=== PATIENT | male | born 1940 | race Caucasian/White ===

== ENCOUNTER 2020-09-10 11:58 | Emergency (ER) | payer MEDICARE, OTHER ==
--- NOTE | 2020-09-10 13:01 | CT Report ---
PROCEDURE: HEAD WO INDICATIONS: fall, head injury, nausea and vomiting TECHNIQUE: Noncontrast 4.5 mm thick angled axial sections acquired from the foramen magnum to the vertex. For r adiation dose reduction, the following was used: automated exposure control, adjustment of mA and/or kV according to patient size. COMPARISON: None. FINDINGS: Image quality: Excellent. CSF spaces: Basal cisterns are patent. No extra-axial fluid collections. Ventricles are normal in size and shape. Brain: No midline shift. No intracranial masses or hemorrhage. Butcher-white matter interface is norm al. Age-appropriate brain parenchymal volume loss and chronic small vessel ischemic change can be se en. There is a focal remote infarct seen involving the right basal ganglia. Skull and face: Mild left forehead soft tissue swelling is seen, with a mild scalp hematoma. There i s a subcutaneous foreign body seen, as on series 7 image 13 and on series 3 image 13. No underlying f racture can be seen. Calvarium and visualized facial bones are intact, without suspicious lesions. Sinuses: Visualized sinuses and mastoids are clear. IMPRESSION: No intracranial hemorrhage is seen. No significant intracranial abnormality is seen. Mild left forehead hematoma, with associated subcutaneous foreign body. No fracture can be seen. Remote right basal ganglia infarct. Reviewed by: Zechariah Shaikh MD on 09/10/2020 12:00 PM [facility] Approved by: Zechariah Shaikh MD on 09/10/2020 12:00 PM [facility] Station ID: [id number]
[2020-09-10] MEDS ORDERED: ONDANSETRON 4 MG/2 ML VIAL IVP STA (13:35)
--- NOTE | 2020-09-10 13:39 | ED Physician Documentation ---
History of Present Illness - Stated complaint Stated Complaint: FALL - Chief complaint Chief Complaint: Trauma Hd/Nk - History obtained from History obtained from: Patient, Family - Additonal information Additional information: Patient comes emergency department chief complaint of head injury 2 days ago. Patient states he was walking up the steps and got distracted and tripped over the steps, falling forward and striking his head on the stair. Patient states that As the day wore on, he began to develop a sense of nausea and headache. Patient states the feeling persisted yesterday and that he finally decided to come to the emergency department today. No other injuries whatsoever during the fall. No visual changes. Patient denies any other complaints at this time. He was feeling well prior to the fall. Review of Systems Ten Systems: 10 systems reviewed and negative Constitutional: reports: Reviewed and negative Eyes: reports: Reviewed and negative Ears: reports: Reviewed and negative Nose: reports: Reviewed and negative Throat: reports: Reviewed and negative Cardiac: reports: Reviewed and negative Respiratory: reports: Reviewed and negative GI: reports: Nausea, Vomiting : reports: Reviewed and negative Skin: reports: Reviewed and negative Musculoskeletal: reports: Reviewed and negative Neurologic: reports: Headache Psychiatric: reports: Reviewed and negative Endocrine: reports: Reviewed and negative Immunocompromised: reports: Reviewed and negative PD PAST MEDICAL HISTORY - Past Medical History Past Medical History: Yes Cardiovascular: Congestive heart failure, [place] Respiratory: Sleep apnea, CPAP use Neuro: CVA Endocrine/Autoimmune: Type 2 diabetes GI: Other : Frequency HEENT: None Psych: Panic attacks Musculoskeletal: Osteoarthritis - Past Surgical History Past Surgical History: Yes General: Appendectomy Ortho: Knee replacement Cardiovascular: Coronary stent, Vascular surgery, Other - Present Medications Home Medications: Ambulatory Orders Medication Instructions Recorded Confirmed Ondansetron Odt [Zofran] 4 mg TL Q6H PRN #10 tablet 09/10/20 - Allergies Allergies/Adverse Reactions: Allergies Allergy/AdvReac Type Severity Reaction Status Date / Time codeine Allergy Hallucinati Verified 09/10/20 12:05 ons - Social History Does the pt smoke?: No Smoking Status: Never smoker Does the pt drink ETOH?: No Does the pt have substance abuse?: No - Immunizations Immunizations are current?: Yes PD ED PE NORMAL - Vitals Vital signs reviewed: Yes - General General: Alert and oriented X 3, No acute distress, Well developed/nourished - HEENT HEENT: PERRL, EOMI, Moist mucous membranes, Other (Contusion, central forehead superiorly.) - Neck Neck: Supple, no meningeal sign - Cardiac Cardiac: RRR, No murmur - Respiratory Respiratory: No respiratory distress, Clear bilaterally - Abdomen Abdomen: Soft, Non tender, Non distended - Back Back: No spinal TTP - Derm Derm: Normal color, Warm and dry, No rash - Extremities Extremities: No deformity, No edema - Neuro Neuro: Alert and oriented X 3, holistic pulser 2-12 intact, No motor deficit, No sensory deficit, Normal speech - Psych Psych: Normal mood, Normal affect Results - Vitals Vitals: Vital Signs - 24 hr 09/10/20 09/10/20 09/10/20 12:07 13:57 15:17 Temperature 36.8 C 36.6 C Heart Rate 58 L 57 L 59 L Respiratory 20 11 L 17 Rate Blood Pressure 146/53 H 146/75 H 126/66 O2 Saturation 98 95 95 Oxygen O2 Source Room air - Rads (name of study) CT head Radiology: Final report received, EMP read indepedently, See rad report (nad) PD MEDICAL DECISION MAKING - ED course Complexity details: reviewed results, re-evaluated patient, considered differential, d/w patient, d/w family ED course: The patient overall was fairly well-appearing, and CT scan of the head was unremarkable. He was treated symptomatically in the emergency department with IV fluids and Zofran, after which he was found to be feeling better. I felt the patient was stable for discharge home. We have discussed home management of symptoms and the usual indications for return. Departure - Departure Disposition: 01 Home, Self Care Clinical Impression: Concussion Qualifiers: Encounter type: initial encounter Loss of consciousness presence/duration: without LOC Qualified Code(s): S06.0X0A - Concussion without loss of consciousness, initial encounter Vomiting Qualifiers: Vomiting type: bilious vomiting Nausea presence: with nausea Qualified Code(s): R11.14 - Bilious vomiting Condition: Stable Instructions: ED Head Injury Closed, ED Nausea Vomiting Prescriptions: Ondansetron Odt [Zofran] 4 mg TL Q6H PRN #10 tablet PRN Reason: Nausea / Vomiting Comments: Your CT scan looks good. There is no evidence of bleeding in the brain or any other concerning findings. You have been treated with Zofran for your nausea today, and will be given the same to take at home. Please drink plenty of fluids and get rest when you need it. You may eat food as tolerated, though if you feel excessively nauseated when you eat, just stick to liquids until your stomach is feeling better. Likely, you will have nausea for a few days and you might feel a little dizzy. Please follow-up with your primary care physician if needed. Discharge Date/Time: 09/10/20 15:38
[2020-09-10] MEDS ORDERED: SODIUM CHLORIDE 0.9% 1,000 ML IV STA (14:19)
[2020-09-10 15:19] VITALS: BP 126/66
== END 2020-09-10 15:38 | disposition home or self-care (01) ==
LOC: ED 11:58
DX: S06.0X0A Concussion without loss of consciousness, initial encounter (principal); S00.83XA Contusion of other part of head, initial encounter; W10.9XXA Fall (on) (from) unspecified stairs and steps, initial encounter; Y93.01 Activity, walking, marching and hiking; E11.9 Type 2 diabetes mellitus without complications
CPT/HCPCS: 96374; 99284

== ENCOUNTER 2020-10-29 17:18 | Outpatient (CLI) | payer MEDICARE | END 2020-10-29 17:19 | disposition home or self-care (01) | LOC: COV 17:18 | PROVIDERS: ATTEND Physician Assistant | DX: Z01.812 Encounter for preprocedural laboratory examination (principal); Z20.822 Contact with and (suspected) exposure to COVID-19 ==

== ENCOUNTER 2020-11-04 10:58 | Emergency (ER) | payer MEDICARE ==
[2020-11-04 11:49] LABS: BASOPHILS % (AUTO) 0.4 %; EOSINOPHILS # (AUTO) 0.1 10^3/uL (0.0-0.7); EOSINOPHILS % (AUTO) 1.6 %; HCT - HEMATOCRIT 38.3 % (42.0-52.0); HGB - HEMOGLOBIN 12.5 g/dL (14.0-18.0); LYMPHOCYTES # (AUTO) 1.1 10^3/uL (1.5-3.5); LYMPHOCYTES % (AUTO) 22.2 %; MEAN CORPUSCULAR HEMOGLOBIN 29.6 pg (27.0-31.0); MEAN CORPUSCULAR HGB CONC 32.6 g/dL (32.0-36.0); MEAN CORPUSCULAR VOLUME 90.8 fL (80.0-94.0); MONOCYTES # (AUTO) 0.3 10^3/uL (0.0-1.0); MONOCYTES % (AUTO) 5.9 %; NEUTROPHILS # (AUTO) 3.4 10^3/uL (1.5-6.6); NEUTROPHILS % (AUTO) 69.5 %; PLT - PLATELET COUNT 142 10^3/uL (130-450); RED BLOOD COUNT 4.22 10^6/uL (4.70-6.10); RED CELL DISTRIBUTION WIDTH 15.6 % (12.0-15.0); WHITE BLOOD COUNT 4.9 x10^3/uL (4.8-10.8)
[2020-11-04 12:03] LABS: ALBUMIN 4.6 g/dL (3.2-5.5); ALBUMIN/GLOBULIN RATIO 1.5 (1.0-2.2); BILIRUBIN,TOTAL 1.5 mg/dL (0.2-1.0); CALCIUM 9.5 mg/dL (8.5-10.3); CREATININE 1.1 mg/dL (0.6-1.2); POTASSIUM 3.6 mmol/L (3.5-5.0); TOTAL PROTEIN 7.6 g/dL (6.7-8.2)
[2020-11-04] MEDS ORDERED: HALOPERIDOL 5 MG/ML VIAL IVP ONE (12:33)
[2020-11-04] MEDS ORDERED: DEXAMETHASONE 10 MG/ML VIAL IVP STA (12:33)
[2020-11-04] MEDS ORDERED: SODIUM CHLORIDE 0.9% 1,000 ML IV STA (12:33)
--- NOTE | 2020-11-04 12:36 | ED Physician Documentation ---
PD HPI NVD - Stated complaint Stated Complaint: N/V - Chief complaint Chief Complaint: Abd Pain - History obtained from History obtained from: Patient, Family - Additonal information Additional information: 80-year-old gentleman had colonoscopy and EGD 5 days ago. He is always had trouble with anesthetic before and has had a lot of problems with nausea. He has not been vomiting but has had persistent nausea since the procedures. States his bowel movements have been normal and he is in no pain. Feels very dizzy and weak and has had some near falls. Granddaughter confides in me that he has also been short of breath although the patient does not readily offer this. He has a history of coronary disease and carotid disease. Review of Systems Ten Systems: 10 systems reviewed and negative Constitutional: reports: Fatigue Respiratory: reports: Dyspnea GI: reports: Nausea. denies: Abdominal Pain, Vomiting, Constipation, Diarrhea, Hematemesis PD PAST MEDICAL HISTORY - Past Medical History Past Medical History: Yes Cardiovascular: Congestive heart failure, [place] Respiratory: Sleep apnea, CPAP use Neuro: CVA Endocrine/Autoimmune: Type 2 diabetes GI: None, Other : Frequency HEENT: None Psych: Panic attacks Musculoskeletal: Osteoarthritis Derm: None - Past Surgical History Past Surgical History: Yes General: Appendectomy Ortho: Knee replacement Cardiovascular: Coronary stent, Vascular surgery, Other - Present Medications Home Medications: Ambulatory Orders Medication Instructions Recorded Confirmed Ondansetron Odt [Zofran] 4 mg TL Q6H PRN #10 tablet 09/10/20 LORazepam [Ativan] 1 mg PO TID PRN #6 tablet 11/04/20 Metoclopramide [Reglan] 10 mg PO Q6H PRN #20 tablet 11/04/20 - Allergies Allergies/Adverse Reactions: Allergies Allergy/AdvReac Type Severity Reaction Status Date / Time codeine Allergy Hallucinati Verified 11/04/20 11:29 ons - Social History Does the pt smoke?: No Smoking Status: Never smoker Does the pt drink ETOH?: No Does the pt have substance abuse?: No - Immunizations Immunizations are current?: Yes PD ED PE NORMAL - Vitals Vital signs reviewed: Yes - General General: Alert and oriented X 3, Other (He appears uncomfortable and prefers to keep his eyes closed.) - HEENT HEENT: PERRL, EOMI - Neck Neck: Supple, no meningeal sign, No bony TTP - Cardiac Cardiac: RRR, No murmur - Respiratory Respiratory: No respiratory distress, Clear bilaterally - Abdomen Abdomen: Normal bowel sounds, Soft, Non tender - Back Back: No CVA TTP, No spinal TTP - Derm Derm: Normal color, Warm and dry - Extremities Extremities: No edema, No calf tenderness / cord - Neuro Neuro: Alert and oriented X 3, Normal speech Results - Vitals Vitals: Vital Signs - 24 hr 11/04/20 11/04/20 11/04/20 11:24 13:28 15:00 Temperature 36.9 C 36.8 C 36.6 C Heart Rate 69 75 65 Respiratory 24 16 18 Rate Blood Pressure 153/87 H 182/100 H 183/65 H O2 Saturation 100 95 93 11/04/20 16:27 Temperature 36.5 C Heart Rate 70 Respiratory 18 Rate Blood Pressure 201/85 H O2 Saturation 97 Oxygen O2 Source Room air - EKG (time done) 1309 Rate: Rate (enter#) (72) Rhythm: NSR [place]: Normal Intervals: Other (LAFB) QRS: Low voltage Ischemia: Non specific changes - Labs Labs: Laboratory Tests 11/04/20 11/04/20 11/04/20 11:43 11:43 11:43 WBC 4.9 RBC 4.22 L Hgb 12.5 L Hct 38.3 L MCV 90.8 MCH 29.6 MCHC 32.6 RDW 15.6 H Plt Count 142 MPV 9.0 Neut # (Auto) 3.4 Lymph # (Auto) 1.1 L [place] # (Auto) 0.3 Eos # (Auto) 0.1 Baso # (Auto) 0.0 Absolute Nucleated RBC 0.00 Nucleated RBC % 0.0 Sodium 140 Potassium 3.6 Chloride 100 L Carbon Dioxide 27 Anion Gap 13.0 BUN 19 Creatinine 1.1 Estimated GFR (MDRD) 65 L Glucose 157 H Calcium 9.5 Total Bilirubin 1.5 H AST 50 H ALT 42 Alkaline Phosphatase 66 Troponin I High Sens 19.2 Total Protein 7.6 Albumin 4.6 Globulin 3.0 Albumin/Globulin Ratio 1.5 Lipase 30 Urine Color Urine Clarity Urine pH Ur Specific Paron Urine Protein Urine Glucose (UA) Urine Ketones Urine Occult Blood Urine Nitrite Urine Bilirubin Urine Urobilinogen Ur Leukocyte Esterase Ur Microscopic Review Urine Culture Comments 11/04/20 12:23 WBC RBC Hgb Hct MCV MCH MCHC RDW Plt Count MPV Neut # (Auto) Lymph # (Auto) [place] # (Auto) Eos # (Auto) Baso # (Auto) Absolute Nucleated RBC Nucleated RBC % Sodium Potassium Chloride Carbon Dioxide Anion Gap BUN Creatinine Estimated GFR (MDRD) Glucose Calcium Total Bilirubin AST ALT Alkaline Phosphatase Troponin I High Sens Total Protein Albumin Globulin Albumin/Globulin Ratio Lipase Urine Color DARK YELLOW Urine Clarity CLEAR Urine pH 8.5 H Ur Specific Paron 1.020 Urine Protein NEGATIVE Urine Glucose (UA) NEGATIVE Urine Ketones NEGATIVE Urine Occult Blood NEGATIVE Urine Nitrite NEGATIVE Urine Bilirubin NEGATIVE Urine Urobilinogen 1 (NORMAL) Ur Leukocyte Esterase NEGATIVE Ur Microscopic Review NOT INDICATED Urine Culture Comments NOT INDICATED PD MEDICAL DECISION MAKING - ED course ED course: 80-year-old gentleman with persistent nausea after procedure. Also has vertigo. States that this is happened before with anesthetic but never before this lo ng. He was given some Zofran which was ineffective. No evidence of perforation or bowel obstruction on exam. We will give him some dexamethasone and haloperidol. Also probably deserving of a cardiac work-up given complaint of shortness of breath and nausea. Work-up was without significant abnormal etiologies or worrisome findings. After divided doses of medications he was feeling much better. Frankly Ativan seemed the most effective. Departure - Departure Disposition: 01 Home, Self Care Clinical Impression: Nausea Condition: Good Record reviewed to determine appropriate education?: Yes Instructions: ED Nausea Vomiting Prescriptions: LORazepam [Ativan] 1 mg PO TID PRN #6 tablet PRN Reason: Nausea / Vomiting Metoclopramide [Reglan] 10 mg PO Q6H PRN #20 tablet PRN Reason: nausea or headache Comments: Prescriptions were sent electronically to [facility] in [place]. Return for any worsening symptoms. Do not drink or drive with the lorazepam/Ativan as it may make you sleepy. Return for new or worsening symptoms or if not better in a day or 2. Discharge Date/Time: 11/04/20 16:28
[2020-11-04 12:47] LABS: BILIRUBIN,URINE NEGATIVE (NEGATIVE); GLUCOSE, URINE (UA) NEGATIVE (NEGATIVE); KETONES,URINE (UA) NEGATIVE (NEGATIVE); LEUKOCYTE ESTERASE, URINE NEGATIVE (NEGATIVE); NITRITE,URINE NEGATIVE (NEGATIVE); OCCULT BLOOD,URINE NEGATIVE (NEGATIVE); PH,URINE 8.5 PH (5.0-7.5); PROTEIN,URINE NEGATIVE (NEGATIVE); UROBILINOGEN,URINE 1 (NORMAL) E.U./dL (NORMAL)
[2020-11-04 13:01] LABS: CLARITY,URINE CLEAR (CLEAR)
[2020-11-04] MEDS ORDERED: LORazepam 2 MG/ML VIAL IVP STA ×2 (13:11→15:48)
[2020-11-04 16:28] VITALS: BP 201/85
== END 2020-11-04 16:28 | disposition home or self-care (01) ==
LOC: ED 10:58
DX: R11.0 Nausea (principal); E11.9 Type 2 diabetes mellitus without complications
CPT/HCPCS: 36415; 80053; 81003; 83690; 84484; 85025; 93005; 96361; 96374; 96375; 96376; 99283; 99284; J2060; 81001; 87086

== ENCOUNTER 2021-05-24 18:30 | Outpatient (CLI) | payer MEDICARE | END 2021-05-24 18:31 | disposition critical access hospital (66) | LOC: EMS 18:30 | DX: R53.1 Weakness (principal); R42 Dizziness and giddiness; R26.81 Unsteadiness on feet | CPT/HCPCS: A0425; A0429 ==

== ENCOUNTER 2021-05-24 18:50 | Inpatient (IN) | payer MEDICARE ==
[2021-05-24] MEDS ORDERED: SODIUM CHLORIDE 0.9% 1,000 ML IV STA (19:51)
--- NOTE | 2021-05-24 19:56 | ED Physician Documentation ---
PD HPI URI - Stated complaint Stated Complaint: WEAKNESS/DIZZINESS - Chief complaint Chief Complaint: Fever - History obtained from History obtained from: Patient, EMS - History of Present Illness Timing - onset: How many days ago (3) Timing duration: Days (3) Timing details: Gradual onset, Still present Associated symptoms: Fever, Nasal congestion, Dry cough, Other (collapse today) Contributing factors: Sick contact (daughter in the hospital with COVID) Improves by: O2 Worsened by: Activity Similar symptoms before: Has not had sx before Recently seen: Not recently seen - Additional information Additional information: previously well 81 y/o male with a history of CAD, diabetes and CVA has exposure to a daughter with COVID. She is currently in the hospital starting 4 days ago. The patient is vaccinated with 2 doses of covid vaccine. He has developed a cough 3 days ago and today has fever on arrival to the ED. He had a collapse at home this evening and was attended to by medics who transported the patient to the hospital. Review of Systems Constitutional: reports: Fever, Myalgias, Fatigue Eyes: denies: Decreased vision Ears: denies: Ear pain Nose: reports: Rhinorrhea / runny nose, Congestion Throat: denies: Sore throat Cardiac: denies: Chest pain / pressure, Palpitations Respiratory: reports: Cough. denies: Dyspnea GI: denies: Abdominal Pain, Nausea, Vomiting, Constipation, Diarrhea : reports: Incontinent (for the past 3 wks.). denies: Dysuria, Frequency PD PAST MEDICAL HISTORY - Past Medical History Cardiovascular: Congestive heart failure, [place] Respiratory: Sleep apnea, CPAP use Neuro: CVA Endocrine/Autoimmune: Type 2 diabetes GI: None, Other : Frequency HEENT: None Psych: Panic attacks Musculoskeletal: Osteoarthritis Derm: None - Past Surgical History Past Surgical History: Yes General: Appendectomy Ortho: Knee replacement Cardiovascular: Coronary stent, Vascular surgery, Other - Present Medications Home Medications: Ambulatory Orders Medication Instructions Recorded Confirmed Ondansetron Odt [Zofran] 4 mg TL Q6H PRN #10 tablet 09/10/20 LORazepam [Ativan] 1 mg PO TID PRN #6 tablet 11/04/20 Metoclopramide [Reglan] 10 mg PO Q6H PRN #20 tablet 11/04/20 - Allergies Allergies/Adverse Reactions: Allergies Allergy/AdvReac Type Severity Reaction Status Date / Time codeine Allergy Hallucinati Verified 11/04/20 11:29 ons - Social History Does the pt smoke?: No Smoking Status: Never smoker Does the pt drink ETOH?: No Does the pt have substance abuse?: No - Immunizations Immunizations are current?: Yes PD ED PE NORMAL - Vitals Vital signs reviewed: Yes (febrile and hypertensive ) - General General: Alert and oriented X 3, Well developed/nourished, Other (flush appearing ) - HEENT HEENT: Atraumatic, PERRL, EOMI, Other (mucous membranes are parched. ) - Neck Neck: Supple, no meningeal sign, No bony TTP - Cardiac Cardiac: RRR, No murmur - Respiratory Respiratory: No respiratory distress, Other (diminished breath sounds with crackles in the right base most decreased at left base. 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 2-12 intact, No motor deficit, No sensory deficit, Normal speech Eye Opening: Spontaneous Motor: Obeys Commands Verbal: Oriented GCS Score: 15 - Psych Psych: Normal mood, Normal affect Results - Vitals Vitals: Vital Signs - 24 hr 05/24/21 05/24/21 05/24/21 19:11 19:15 19:51 Temperature 100.9 C H Heart Rate 80 78 Respiratory 24 25 H 25 H Rate Blood Pressure 185/91 H O2 Saturation 98 98 96 05/24/21 05/24/21 20:36 20:49 Temperature Heart Rate 78 73 Respiratory 23 28 H Rate Blood Pressure 131/52 H 131/52 H O2 Saturation 97 96 Oxygen O2 Source Nasal cannula - Labs Labs: Laboratory Tests 05/24/21 05/24/21 05/24/21 20:00 20:00 20:00 WBC 7.3 RBC 3.72 L Hgb 10.8 L Hct 33.4 L MCV 89.8 MCH 29.0 MCHC 32.3 RDW 15.7 H Plt Count 119 L MPV 9.9 Neut # (Auto) 5.9 Lymph # (Auto) 0.6 L [place] # (Auto) 0.8 Eos # (Auto) 0.0 Baso # (Auto) 0.0 Absolute Nucleated RBC 0.00 Nucleated RBC % 0.0 Sodium 135 Potassium 3.7 Chloride 96 L Carbon Dioxide 27 Anion Gap 12.0 BUN 37 H Creatinine 1.6 H Estimated GFR (MDRD) 42 L Glucose 192 H Lactic Acid 1.9 Calcium 8.1 L Total Bilirubin 1.1 H AST 23 ALT 21 Alkaline Phosphatase 73 Total Protein 6.6 L Albumin 3.5 Globulin 3.1 Albumin/Globulin Ratio 1.1 Lipase 34 Nasal Adenovirus (PCR) Nasal B. parapertussis DNA (PCR) Nasal Coronavir 229E PCR Nasal Coronavir HKU1 PCR Nasal Coronavir NL63 PCR Nasal Coronavir OC43 PCR Nasal Enterovir/Rhinovir PCR Nasal Influenza B PCR Nasal Influenza A PCR Nasal Parainfluen 1 PCR Nasal Parainfluen 2 PCR Nasal Parainfluen 3 PCR Nasal Parainfluen 4 PCR Nasal RSV (PCR) Nasal B.pertussis DNA PCR Nasal C.pneumoniae (PCR) Erwin Human Metapneumo PCR Nasal M.pneumoniae (PCR) Nasal SARS-CoV-2 (PCR) 05/24/21 20:00 WBC RBC Hgb Hct MCV MCH MCHC RDW Plt Count MPV Neut # (Auto) Lymph # (Auto) [place] # (Auto) Eos # (Auto) Baso # (Auto) Absolute Nucleated RBC Nucleated RBC % Sodium Potassium Chloride Carbon Dioxide Anion Gap BUN Creatinine Estimated GFR (MDRD) Glucose Lactic Acid Calcium Total Bilirubin AST ALT Alkaline Phosphatase Total Protein Albumin Globulin Albumin/Globulin Ratio Lipase Nasal Adenovirus (PCR) NOT DETECTED Nasal B. parapertussis DNA (PCR) NOT DETECTED Nasal Coronavir 229E PCR NOT DETECTED Nasal Coronavir HKU1 PCR NOT DETECTED Nasal Coronavir NL63 PCR NOT DETECTED Nasal Coronavir OC43 PCR NOT DETECTED Nasal Enterovir/Rhinovir PCR NOT DETECTED Nasal Influenza B PCR NOT DETECTED Nasal Influenza A PCR NOT DETECTED Nasal Parainfluen 1 PCR NOT DETECTED Nasal Parainfluen 2 PCR NOT DETECTED Nasal Parainfluen 3 PCR NOT DETECTED Nasal Parainfluen 4 PCR NOT DETECTED Nasal RSV (PCR) NOT DETECTED Nasal B.pertussis DNA PCR NOT DETECTED Nasal C.pneumoniae (PCR) NOT DETECTED Erwin Human Metapneumo PCR NOT DETECTED Nasal M.pneumoniae (PCR) NOT DETECTED Nasal SARS-CoV-2 (PCR) NOT DETECTED - Rads (name of study) chest Radiology: EMP read indepedently (looks like covid) Procedures - Bedside sono Bedside sono by EMP: with the use of bedside ultrasound the bladder is imaged and is not over-filled and is sonographically non-tender. - IVC sono (time) 1949 Bedside IVC sono: IVC measures (cm) (1.2), IVC collapsed c insp (cm) (complete), Dehydration (est 1 liter deficit) PD MEDICAL DECISION MAKING - ED course Complexity details: reviewed old records, reviewed results, re-evaluated patient, considered differential, d/w patient ED course: 81-year-old male with a history of type 2 diabetes, CHF and coronary artery disease as well as CVA has contracted Covid and tested +2 weeks ago. Today he is hypoxic and has collapsed in his home not injuring himself. He is found to be dehydrated on interrogation the inferior vena cava and he improves with IV saline and oxygen. Today his PCR is negative. He continues to have sequela of Covid pneumonia with hypoxia today. Departure - Departure Disposition: 66 [facility] DC/Xfer Clinical Impression: Pneumonia due to COVID-19 virus
[2021-05-24 20:17] LABS: BASOPHILS % (AUTO) 0.1 %; EOSINOPHILS % (AUTO) 0.1 %; HCT - HEMATOCRIT 33.4 % (42.0-52.0); HGB - HEMOGLOBIN 10.8 g/dL (14.0-18.0); LYMPHOCYTES # (AUTO) 0.6 10^3/uL (1.5-3.5); LYMPHOCYTES % (AUTO) 7.5 %; MEAN CORPUSCULAR HGB CONC 32.3 g/dL (32.0-36.0); MEAN CORPUSCULAR VOLUME 89.8 fL (80.0-94.0); MEAN PLATELET VOLUME 9.9 fL (7.4-11.4); MONOCYTES # (AUTO) 0.8 10^3/uL (0.0-1.0); MONOCYTES % (AUTO) 10.5 %; NEUTROPHILS # (AUTO) 5.9 10^3/uL (1.5-6.6); NEUTROPHILS % (AUTO) 81.1 %; PLT - PLATELET COUNT 119 10^3/uL (130-450); RED BLOOD COUNT 3.72 10^6/uL (4.70-6.10); RED CELL DISTRIBUTION WIDTH 15.7 % (12.0-15.0); WHITE BLOOD COUNT 7.3 x10^3/uL (4.8-10.8)
[2021-05-24 20:31] LABS: ALBUMIN 3.5 g/dL (3.2-5.5); ALBUMIN/GLOBULIN RATIO 1.1 (1.0-2.2); BILIRUBIN,TOTAL 1.1 mg/dL (0.2-1.0); CALCIUM 8.1 mg/dL (8.5-10.3); CREATININE 1.6 mg/dL (0.6-1.2); POTASSIUM 3.7 mmol/L (3.5-5.0); TOTAL PROTEIN 6.6 g/dL (6.7-8.2)
[2021-05-24 21:09] LABS: B. PARAPERTUSSIS- RESP PCR PAN NOT DETECTED; B. PERTUSSIS- RESP PCR PANEL NOT DETECTED; C. PNEUMONIAE- RESP PCR PANEL NOT DETECTED; CORONAVIRUS 229E-RESP PCR NOT DETECTED; CORONAVIRUS HKU1-RESP PCR NOT DETECTED; CORONAVIRUS NL63-RESP PCR NOT DETECTED; CORONAVIRUS OC43-RESP PCR NOT DETECTED; HUMAN METAPNEUMOVIRUS NOT DETECTED; INFLUENZA A- RESP PCR PANEL NOT DETECTED; INFLUENZA B - RESP PCR PANEL NOT DETECTED; M. PNEUMONIAE- RESP PCR PANEL NOT DETECTED; PARAINFLUENZA VIRUS 1 NOT DETECTED; PARAINFLUENZA VIRUS 2 NOT DETECTED; PARAINFLUENZA VIRUS 3 NOT DETECTED; PARAINFLUENZA VIRUS 4 NOT DETECTED; RHINOVIRUS/ENTEROVIRUS NOT DETECTED; RSV- RESP PCR PANEL NOT DETECTED; SARS-CoV-2 -RESP PCR PANEL NOT DETECTED
--- NOTE | 2021-05-24 21:23 | XRAY Report ---
PROCEDURE: Chest 1 View X-Ray INDICATIONS: chest pain COMMENTS: SOB X 2 DAYS WITH COUGH PRIORS: NONE TECHNIQUE: One view of the chest was acquired. COMPARISON: None FINDINGS: Surgical changes and devices: None. Lungs and pleura: No pleural effusions or pneumothorax. No focal consolidation or mass. Diffuse p rominence of the vasculature is seen, likely due to accentuation from overlying soft tissue. However mild CHF could also cause this appearance. Mediastinum: Mediastinal contours appear normal. Heart size is enlarged. Bones and chest wall: No suspicious bony lesions. Overlying soft tissues appear unremarkable. IMPRESSION: 1. Cardiomegaly. 2. Pulmonary vascular prominence consistent with early CHF versus accentuation from overlying soft ti ssue. Reviewed by: Dheeraj Moon on 05/24/2021 9:22 PM [facility] Approved by: Dheeraj Moon on 05/24/2021 9:22 PM [facility] Station ID: [id number]
[2021-05-24] MEDS ORDERED: SODIUM CHLORIDE FLUSH 0.9% 10 ML SYRINGE IVP PRN (21:34)
--- NOTE | 2021-05-24 21:52 | HISTORY & PHYSICAL EXAMINATION ---
Chief Complaint - Chief Complaint Chief Complaint: Weak and dizzy, fell OOB at home History of Present Illness - Admitted From Admitted From:: ED - History Obtained From History obtained from: ED provider, chart review and the patient - History of Present Illness HPI Comment/Other: This is a 81 y/o male with a history of sleep apnea, but does not use his CPAP, CAD, Diabetes mellitus and prior CVA, who had exposure to a daughter with COVID. She is currently in the hospital due to COVID, starting 4 days ago. The patient is vaccinated with 2 doses of covid vaccine. On 05/11/21, the patient tested (+) for COVID. He developed a cough 3 days ago and today had a fever. Today he felt weak and dizzy, and tried to get OOB but fell or rolled OOB, becoming trapped between the dresser and his bed and 911 was called by his grand daughter. The EMS run sheet documented a BP of 143/73 at the scene, HR 80, RR 32, O2 sat 92% on R.A. glu 210, and he was warm and diaphoretic. He was brought to the ER where his temp was 100.9F. His labs showed WBC 7.3, Hgb 10 (usually Hgb 12), JONNY with creat 1.6 (normally creat is 1.1) and interrogation of IVC showed dehydration, so he received 1L of saline. His resp PCR was neg for COVID today and his CXR was read as having CHF vs "artifact from overlying soft tissue" (since he ius obese), but it was not read as having lobar consolidation or an atypical, viral pneumonia. The patient is being placed in Observation status to manage his fever, dizziness,weakness and JONNY, which are likely from dehydration. When asked about his wishes regarding resuscitation, the patient said he has never thought about it, therefore, by default, he is a full code. History - Past Medical History Cardiovascular: reports: Congestive heart failure, [place] Respiratory: reports: Sleep apnea, CPAP use (He stopped using his CPAP many months ago "because it is dirty") Neuro: reports: CVA Endocrine/Autoimmune: reports: Type 2 diabetes GI: reports: None, Other : reports: Frequency HEENT: reports: Other (Edentulous and wears dentures) Psych: reports: Panic attacks Musculoskeletal: reports: Osteoarthritis Derm: reports: None MRSA Hx?: No - Past Surgical History General: reports: Appendectomy Ortho: reports: Knee replacement Cardiovascular: reports: Coronary stent, Vascular surgery, Other - Family & Social History Living arrangement: At home Living Situation: With spouse/s.o., With family Social History Notes: 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 He moved from [place] to [facility] five years ago, where he and his moved in with their daughter and her 2 daughters. One grandchild just had a baby girl (so its his [id number]). He drives a car, is busy around the house. He does not know his meds, he just "takes what is given to him". He denies cigarette smoking or alcohol use. - Substance History Use: Uses substance without health or social issues: NONE Meds/Allgy - Home Medications Home Medications: Ambulatory Orders Medication Instructions Recorded Confirmed Ondansetron Odt [Zofran] 4 mg TL Q6H PRN #10 tablet 09/10/20 LORazepam [Ativan] 1 mg PO TID PRN #6 tablet 11/04/20 Metoclopramide [Reglan] 10 mg PO Q6H PRN #20 tablet 11/04/20 - Allergies Allergies/Adverse Reactions: Allergies Allergy/AdvReac Type Severity Reaction Status Date / Time codeine Allergy Hallucinati Verified 11/04/20 11:29 ons Exam - Vital Signs Reviewed Vital Signs: Yes Vital Signs: Vital Signs x48h Temp Pulse Resp BP Pulse Ox 05/24/21 20:49 73 28 H 131/52 H 96 05/24/21 20:36 78 23 131/52 H 97 05/24/21 19:51 78 25 H 96 05/24/21 19:15 25 H 98 05/24/21 19:11 100.9 C H 80 24 185/91 H 98 - Physical Exam General Appearance: positive: No acute distress, Alert Eyes Bilateral: positive: Normal inspection ENT: positive: Dry mucous membranes, Other (Cheeks are flushed) Neck: positive: Nml inspection, No JVD Respiratory: positive: No respiratory distress, Breath sounds nml Cardiovascular: positive: Regular rate & rhythm, No murmur Abdomen: positive: Non-tender, No distention, Other (Obese with a pannus) Skin: positive: Dry, Other (Face is flushed) Extremities: positive: Non-tender, No pedal edema Neurologic/Psychiatric: positive: Oriented x3, Other (Poor historian. Non-focal exam.) Conclusion/Plan - Problem List (1) JONNY (acute kidney injury) Conclusion/Plan: This is likely prerenal azotemia from dehydration related to his fever and Covid illness. Will give IV fluids at 100 cc an hour. Follow BMP daily. Avoid nephrotoxins. (2) Dizziness Conclusion/Plan: This is also likely related to fever and dehydration and will continue with IV fluids. He was weak and says he could not get out of bed or maintain a standing position, then got stuck between furniture and his and 2 children could not left him. He did not have syncope however. Will monitor orthostatic vital signs. Place on telemetry to watch for arrhythmia. Will obtain an EKG, given his weakness/dizziness and "fall" OOB. Will order a complete Echo given his history of CHF (3) Dehydration Conclusion/Plan: He clinically appears dry and the elevated creatinine suggests dehydration. Continue with IV fluids as described above (4) Fever Conclusion/Plan: Despite testing positive for Covid 2 weeks ago, he described only having symptoms of a cough for the last 3 days and a fever just today. He is a very poor historian and cannot give me details about whether he had longer symptoms or whether he had GI Covid symptoms. His chest x-ray was read as having CHF, not as having an atypical pneumonia or a lobar consolidation (community-acquired) pneumonia Blood cultures have been drawn. We will obtain sputum cultures. Urine appears to not be a source of his fever. Continue with IV fluids. Follow WBC daily. He is not a candidate for being treated for Covid with Remdesivir as he is not hypoxic and is greater than 10 days out from his positive diagnosis. (5) Abnormal CXR Conclusion/Plan: His presentation of fever, dehydration, and JONNY are consistent with volume depletion, however the chest x-ray was read as suspicious for pulmonary volume overload. We will repeat the chest x-ray in the a.m. We will obtain BNP and follow this daily Will obtain troponins, in case this is systolic heart failure, as per the radiology read out. Will order a complete Echo given his history of CHF. (6) Anemia Conclusion/Plan: Despite being dehydrated, he is anemic and is not hemoconcentrated. This is concerning, since he may have chronic anemia adding to his symptom of weakness and dizziness. We will follow H/H daily and plan transfusion if Hgb goes under 7. We will obtain iron panel and check his stool guaiac (7) RIO on CPAP Conclusion/Plan: He admitted that he has not used his home CPAP for months because it "is dirty". We will order home CPAP use, since RT says they would clean his device if family brings it in (8) Hx of coronary artery disease Conclusion/Plan: The patient can only remember that he takes a baby aspirin daily and does not remember his other cardiac medications. We will await for the medication list to be reconciled by pharmacy to resume his meds. Will obtain an EKG, given his weakness/dizziness and "fall" OOB. Will order a complete Echo given his history of CHF (9) Diabetes mellitus type 2 in obese Conclusion/Plan: Patient reports that he takes Metformin 500 mg only in the a.m. Will await for the medication list to be reconciled to review what he takes in entirety. Will order a diet advancing to soft (because he does not have his dentures) with carb control. We will order hypoglycemia protocol, check his A1c in the a.m., and order sliding scale regular insulin for glucose coverage. (10) Obesity (BMI 30.0-34.9) Conclusion/Plan: As per Hx. - Lab Results Fish Bones: 05/24/21 20:00 05/24/21 20:00 - Diagnostic Imaging Results Diagnostic Imaging Results: positive: Final report reviewed - EKG Results EKG Interpreted Independently: Yes EKG Comparison: Unchanged from prior EKG EKG Findings: NSR, rate 69, poor R wave progression, flat T waves in lateral leads, low voltage in limb leads. Since EKG from 11/04/20, similar. - Other Other Results/Comments: Attestation: The patient is expected to be discharged or transferred to another facility within 96 hours: Yes.
[2021-05-24] MEDS ORDERED: DEXTROSE 5%-0.9% NACL 1,000 ML IV SCH (22:00)
[2021-05-24 23:57] LABS: BILIRUBIN,URINE NEGATIVE (NEGATIVE); GLUCOSE, URINE (UA) NEGATIVE (NEGATIVE); KETONES,URINE (UA) NEGATIVE (NEGATIVE); LEUKOCYTE ESTERASE, URINE SMALL (NEGATIVE); NITRITE,URINE POSITIVE (NEGATIVE); OCCULT BLOOD,URINE MODERATE (NEGATIVE); PROTEIN,URINE 100 mg/dL (NEGATIVE); UROBILINOGEN,URINE 0.2 (NORMAL) E.U./dL (NORMAL)
[2021-05-25 00:01] LABS: CLARITY,URINE SL. CLOUDY (CLEAR)
[2021-05-25 00:04] LABS: BACTERIA,URINE Few /HPF (None Seen); SQUAMOUS EPITHELIAL CELL,UR NONE SEEN (<= Few); WBC,URINE >25 /HPF (0-3)
[2021-05-25] MEDS: SODIUM CHLORIDE FLUSH 0.9% 10 ML SYRINGE IVP SCH ×3 (00:27→15:52)
[2021-05-25 05:50] LABS: BASOPHILS % (AUTO) 0.2 %; EOSINOPHILS % (AUTO) 2.7 %; HCT - HEMATOCRIT 32.1 % (42.0-52.0); HGB - HEMOGLOBIN 10.4 g/dL (14.0-18.0); LYMPHOCYTES % (AUTO) 7.9 %; MEAN CORPUSCULAR HEMOGLOBIN 29.2 pg (27.0-31.0); MEAN CORPUSCULAR HGB CONC 32.4 g/dL (32.0-36.0); MEAN CORPUSCULAR VOLUME 90.2 fL (80.0-94.0); MONOCYTES % (AUTO) 9.2 %; NEUTROPHILS % (AUTO) 79.2 %; PLT - PLATELET COUNT 105 10^3/uL (130-450); RED BLOOD COUNT 3.56 10^6/uL (4.70-6.10); RED CELL DISTRIBUTION WIDTH 15.7 % (12.0-15.0); WHITE BLOOD COUNT 6.2 x10^3/uL (4.8-10.8)
[2021-05-25 05:53] LABS: ABNORMAL LYMPHS % (MANUAL) 0 %; BAND NEUTROPHILS % (MANUAL) 0 %
[2021-05-25 05:55] LABS: CALCIUM 7.8 mg/dL (8.5-10.3); CREATININE 1.7 mg/dL (0.6-1.2); POTASSIUM 3.4 mmol/L (3.5-5.0)
[2021-05-25 06:12] LABS: EOSINOPHILS # (MANUAL) 0.1 10^3/uL (0-0.7); LYMPHOCYTES # (MANUAL) 0.7 10^3/uL (1.5-3.5); LYMPHOCYTES % (MANUAL) 11 %; MONOCYTES # (MANUAL) 0.6 10^3/uL (0.0-1.0); NEUTROPHILS # (MANUAL) 4.8 10^3/uL (1.5-6.6); PLATELET MORPHOLOGY NORMAL APPEARANCE (NORMAL); RBC MORPHOLOGY (MULTIPLE) NORMAL APPEARANCE (NORMAL)
[2021-05-25 06:13] LABS: DIFFERENTIAL COMMENT MANUAL DIFFERENTIAL; PLATELET ESTIMATE, MANUAL DECREASED (<130,000) (NORMAL); WBC MORPHOLOGY (MULTIPLE) NORMAL APPEARANCE (NORMAL)
[2021-05-25] MEDS: ACETAMINOPHEN 325 MG TABLET PO PRN ×2 (06:18→12:35)
--- NOTE | 2021-05-25 07:45 | PHARMACY PROGRESS NOTE ---
- Best Possible Medication History Admit Date and Time: 05/24/212133 Processed by: Pharmacy Medication History completed: Yes Secondary Source(s): Pharmacy records, Insurance records As the person ultimately responsible for medication therapy, providers are able to order a medication from an existing home medication list in [facility] via the "Reconcile Routine" prior to Confirmation of that medication by intranet support. Such practice is discouraged except when the physician, in their clinical judgment, deems that a medical need exists for a medication without regard to previous use.
[2021-05-25 08:20] LABS: % IRON SATURATION 3 % (20-50); IRON 10 ug/dL (45-182); TOTAL IRON BINDING CAPACITY 287 ug/dL (250-450); TRANSFERRIN 205 mg/dL (180-329)
[2021-05-25 08:36] LABS: FECAL OCCULT BLOOD (FIT) NEGATIVE (NEGATIVE)
[2021-05-25] MEDS: ASPIRIN EC 81 MG TABLET PO SCH (08:38)
[2021-05-25] MEDS: INSULIN ASPART 300 UNIT/3 ML PEN SUBQ SCH ×4 (08:39→21:48)
[2021-05-25] MEDS ORDERED: cefTRIAXone 1 GM in SODIUM CHLORIDE 0.9% MINIBAG 100 ML IV SCH ×3 (09:00→16:30)
[2021-05-25] MEDS ORDERED: AZITHROMYCIN INJ 500 MG in SODIUM CHLORIDE 0.9% 250 ML IV SCH (09:00)
[2021-05-25] MEDS ORDERED: ENOXAPARIN 40 MG/0.4 ML SYRINGE SUBQ SCH (09:00)
--- NOTE | 2021-05-25 09:01 | PROVIDER PROGRESS NOTE ---
Assessment/Plan - Problem List (1) Sepsis Assessment/Plan: Secondary to UTI. Blood cultures grew E. coli. Patient was started on Cipro 400 mg IV twice daily. We will await sensitivity. IV fluids discontinued because patient became dyspneic. Tylenol as needed for fever. (2) UTI (urinary tract infection) Assessment/Plan: Patient was started on Cipro 400 mg IV twice daily. We will await sensitivity. IV fluids discontinued because patient became dyspneic. Tylenol as needed for fever. (3) JONNY (acute kidney injury) Assessment/Plan: Likely secondary to UTI and or dehydration. Patient initially received IV hydration however this was discontinued and he was given Lasix because he became significantly dyspneic requiring supplemental oxygen. On Cipro 400 mg IV twice daily. We will continue. (4) Anemia Assessment/Plan: Stool guaiac test was negative. Iron level is 10, TIBC 287, percentage saturation 3, transferrin 205. We will hold off on administering supplemental iron while patient is in the septic state. Will order ferrous sulfate when patient recovers from infection. Hemoglobin was 10.8 (5) Diabetes mellitus type 2 in obese Assessment/Plan: We will hold patient's Metformin. HgA1C is 7.4 Accu checks before every meal and at bedtime. Sliding scale insulin. (6) Hx of coronary artery disease Assessment/Plan: On atenolol 50 mg p.o. daily, atorvastatin 80 mg p.o. every afternoon and a baby aspirin. Will resume medications when appropriate. Patient's troponin trend was 26.3 then 24.1 then 43.3. Will trend x1 more. Pain could be due to sepsis and acute kidney injury. Patient does not have chest pain. Will obtain a 2D echocardiogram if patient is in the hospital on 05/27/2021 (7) RIO on CPAP Assessment/Plan: Resume home CPAP at bedtime. - Current Meds Current Meds: Current Medications Generic Name Dose Route Start Last Admin Trade Name Freq PRN Reason Stop Dose Admin Acetaminophen 650 mg 05/24/21 21:34 05/25/21 06:18 Acetaminophen 325 Mg Tablet PO 650 mg Q4HR PRN Administration Pain or Fever > 38C (100.4F) Aspirin 81 mg 05/25/21 09:00 05/25/21 08:38 Aspirin Ec 81 Mg Tablet PO 81 mg DAILY ARGENIS Administration Enoxaparin Sodium 40 mg 05/25/21 09:00 05/25/21 08:41 Enoxaparin 40 Mg/0.4 Ml Syringe SUBQ 40 mg DAILY ARGENIS Administration Dextrose/Sodium Chloride 1,000 mls @ 100 mls/hr 05/24/21 22:00 05/25/21 07:35 D5ns IV 05/25/21 17:59 0 mls/hr .Q10H ARGENIS Infusion Insulin Aspart 1 - 5 unit 05/25/21 08:00 05/25/21 08:39 Insulin Aspart 300 Unit/3 Ml Pen SUBQ 2 unit 0800,1200,1700,2100 [facility] Administration Protocol Sodium Chloride 10 ml 05/25/21 01:00 05/25/21 08:48 Sodium Chloride Flush 0.9% 10 Ml Syringe IVP 10 ml 0100,0900,1700 [facility] Administration - Lab Result Fish Bone Diagrams: 05/25/21 05:36 05/25/21 05:36 - Additional Planning My Orders: My Active Orders 05/25/21 08:57 CK- CREATINE KINASE [CHEM] Stat 05/25/21 09:00 Ciprofloxacin 400 mg/200 ml [Cipro 400 mg/200 ml] 400 mg in 200 ml IV Q12H Finasteride [Proscar] 5 mg PO DAILY Gabapentin [Neurontin] 300 mg PO BID Tamsulosin [Flomax] 0.8 mg PO DAILY Venlafaxine ER [Effexor ER] 37.5 mg PO DAILY allopurinoL [Allopurinol] 300 mg PO DAILY 05/25/21 14:30 TROPONIN I HIGH SENSITIVITY [IAI] Timed 05/25/21 16:00 Pantoprazole [Protonix] 40 mg PO BIDAC 05/25/21 21:00 Atorvastatin Calcium [Lipitor] 80 mg PO QPM Subjective - Subjective Patient Reports: Other (At time of exam however he readily woke up to verbal stimuli and was able to provide an accurate history. He had fever of 38.8 this morning.Later in the day he had mild dyspnea and cough. His blood cultures grew gram-negative bacilli) Objective Vital Signs: Vital Signs - 24 hr 05/24/21 05/24/21 05/24/21 19:11 19:15 19:51 Temperature 38.3 C H 38.3 C H Heart Rate 80 78 Heart Rate [ Brachial] Heart Rate [ Monitoring electrodes] Respiratory 24 25 H 25 H Rate Blood Pressure 185/91 H Blood Pressure [Left Brachial artery] Blood Pressure [Right Brachial artery] O2 Saturation 98 98 96 05/24/21 05/24/21 05/24/21 20:36 20:49 23:50 Temperature 36.9 C Heart Rate 78 73 Heart Rate [ 92 Brachial] Heart Rate [ Monitoring electrodes] Respiratory 23 28 H 22 Rate Blood Pressure 131/52 H 131/52 H Blood Pressure [Left Brachial artery] Blood Pressure 117/70 [Right Brachial artery] O2 Saturation 97 96 93 05/25/21 05/25/21 05/25/21 06:04 07:52 08:59 Temperature 38.8 C H 37.0 C 36.4 C L Heart Rate Heart Rate [ 79 68 Brachial] Heart Rate [ 79 Monitoring electrodes] Respiratory 24 22 24 Rate Blood Pressure Blood Pressure 98/56 L [Left Brachial artery] Blood Pressure 108/54 L 97/50 L [Right Brachial artery] O2 Saturation 98 98 96 Oxygen O2 Source Nasal cannula I&O (Last 24 Hrs): Intake and Output Totals x24h 05/23/21 05/24/21 05/25/21 23:59 23:59 23:59 Intake Total 1000 720 Output Total 375 Balance 1000 345 General: Alert, Oriented x3, Other (lethargic) HEENT: Atraumatic, PERRLA, EOMI Neck: Supple, No JVD Neuro: Alert, Oriented Times 3 Cardiovascular: Regular rate, Normal S1, Normal S2 Respiratory: Other (Mild dyspnea, coughing, mild crackles) Skin: No rashes, No breakdown, No significant lesion - Results Results: Laboratory Results WBC 6.2 x10^3/uL (4.8-10.8) 05/25/21 05:36 RBC 3.56 10^6/uL (4.70-6.10) L 05/25/21 05:36 Hgb 10.4 g/dL (14.0-18.0) L 05/25/21 05:36 Hct 32.1 % (42.0-52.0) L 05/25/21 05:36 MCV 90.2 fL (80.0-94.0) 05/25/21 05:36 MCH 29.2 pg (27.0-31.0) 05/25/21 05:36 MCHC 32.4 g/dL (32.0-36.0) 05/25/21 05:36 RDW 15.7 % (12.0-15.0) H 05/25/21 05:36 Plt Count 105 10^3/uL (130-450) L 05/25/21 05:36 MPV 10.0 fL (7.4-11.4) 05/25/21 05:36 Neut # (Auto) Not Reportable 05/25/21 05:36 Lymph # (Auto) Not Reportable 05/25/21 05:36 Branch # (Auto) Not Reportable 05/25/21 05:36 Eos # (Auto) Not Reportable 05/25/21 05:36 Baso # (Auto) Not Reportable 05/25/21 05:36 Absolute Nucleated RBC Not Reportable 05/25/21 05:36 Total Counted 100 05/25/21 05:36 Band Neuts % (Manual) 0 % (0-10) 05/25/21 05:36 Abnorm Lymph % (Manual) 0 % 05/25/21 05:36 Nucleated RBC % Not Reportable 05/25/21 05:36 Neutrophils # (Manual) 4.8 10^3/uL (1.5-6.6) 05/25/21 05:36 Lymphocytes # (Manual) 0.7 10^3/uL (1.5-3.5) L 05/25/21 05:36 Monocytes # (Manual) 0.6 10^3/uL (0.0-1.0) 05/25/21 05:36 Eosinophils # (Manual) 0.1 10^3/uL (0-0.7) 05/25/21 05:36 Basophils # (Manual) 0.0 10^3/uL (0-0.1) 05/25/21 05:36 Differential Comment MANUAL DIFFERENTIAL 05/25/21 05:36 WBC Morphology NORMAL APPEARANCE (NORMAL) 05/25/21 05:36 Platelet Estimate DECREASED (<130,000) (NORMAL) 05/25/21 05:36 Platelet Morphology NORMAL APPEARANCE (NORMAL) 05/25/21 05:36 RBC Morph Micro Appear NORMAL APPEARANCE (NORMAL) 05/25/21 05:36 D-Dimer 445.9 ng/mL (200.0-255.0) H 05/25/21 05:36 Sodium 136 mmol/L (135-145) 02/12/22 05:36 Potassium 3.4 mmol/L (3.5-5.0) L 05/25/21 05:36 Chloride 98 mmol/L (101-111) L 05/25/21 05:36 Carbon Dioxide 27 mmol/L (21-32) 05/25/21 05:36 Anion Gap 11.0 (6-13) 05/25/21 05:36 BUN 36 mg/dL (6-20) H 05/25/21 05:36 Creatinine 1.7 mg/dL (0.6-1.2) H 05/25/21 05:36 Estimated GFR (MDRD) 39 (>89) L 05/25/21 05:36 Glucose 201 mg/dL (70-100) H 05/25/21 05:36 Lactic Acid 1.9 mmol/L (0.5-2.2) 05/24/21 20:00 Calcium 7.8 mg/dL (8.5-10.3) L 05/25/21 05:36 Iron 10 ug/dL (45-182) L 05/25/21 05:36 TIBC 287 ug/dL (250-450) 05/25/21 05:36 % Saturation 3 % (20-50) L 05/25/21 05:36 Transferrin 205 mg/dL (180-329) 05/25/21 05:36 Total Bilirubin 1.1 mg/dL (0.2-1.0) H 05/24/21 20:00 AST 23 IU/L (10-42) 05/24/21 20:00 ALT 21 IU/L (10-60) 05/24/21 20:00 Alkaline Phosphatase 73 IU/L (42-121) 05/24/21 20:00 Troponin I High Sens 43.3 ng/L (2.3-19.7) H* 05/25/21 05:36 B-Natriuretic Peptide 443 pg/mL (5-100) H 05/25/21 05:36 Total Protein 6.6 g/dL (6.7-8.2) L 05/24/21 20:00 Albumin 3.5 g/dL (3.2-5.5) 05/24/21 20:00 Globulin 3.1 g/dL (2.1-4.2) 05/24/21 20:00 Albumin/Globulin Ratio 1.1 (1.0-2.2) 05/24/21 20:00 Lipase 34 U/L (22-51) 05/24/21 20:00 Urine Color YELLOW 05/24/21 23:50 Urine Clarity SL. CLOUDY (CLEAR) 05/24/21 23:50 Urine pH 6.0 PH (5.0-7.5) 05/24/21 23:50 Ur Specific [place] 1.015 (1.002-1.030) 05/24/21 23:50 Urine Protein 100 mg/dL (NEGATIVE) H 05/24/21 23:50 Urine Glucose (UA) NEGATIVE mg/dL (NEGATIVE) 05/24/21 23:50 Urine Ketones NEGATIVE mg/dL (NEGATIVE) 05/24/21 23:50 Urine Occult Blood MODERATE (NEGATIVE) H 05/24/21 23:50 Urine Nitrite POSITIVE (NEGATIVE) H 05/24/21 23:50 Urine Bilirubin NEGATIVE (NEGATIVE) 05/24/21 23:50 Urine Urobilinogen 0.2 (NORMAL) E.U./dL (NORMAL) 05/24/21 23:50 Ur Leukocyte Esterase SMALL (NEGATIVE) H 05/24/21 23:50 Urine RBC 6-10 /HPF (0-5) H 05/24/21 23:50 Urine WBC >25 /HPF (0-3) H 05/24/21 23:50 Ur Squamous Epith Cells NONE SEEN (<= Few) 05/24/21 23:50 Urine Bacteria Few /HPF (None Seen) 05/24/21 23:50 Ur Microscopic Review INDICATED 05/24/21 23:50 Urine Culture Comments INDICATED 05/24/21 23:50 Nasal Adenovirus (PCR) NOT DETECTED 05/24/21 20:00 Nasal B. parapertussis DNA (PCR) NOT DETECTED 05/24/21 20:00 Nasal Coronavir 229E PCR NOT DETECTED 05/24/21 20:00 Nasal Coronavir HKU1 PCR NOT DETECTED 05/24/21 20:00 Nasal Coronavir NL63 PCR NOT DETECTED 05/24/21 20:00 Nasal Coronavir OC43 PCR NOT DETECTED 05/24/21 20:00 Nasal Enterovir/Rhinovir PCR NOT DETECTED 05/24/21 20:00 Nasal Influenza B PCR NOT DETECTED 05/24/21 20:00 Nasal Influenza A PCR NOT DETECTED 05/24/21 20:00 Nasal Parainfluen 1 PCR NOT DETECTED 05/24/21 20:00 Nasal Parainfluen 2 PCR NOT DETECTED 05/24/21 20:00 Nasal Parainfluen 3 PCR NOT DETECTED 05/24/21 20:00 Nasal Parainfluen 4 PCR NOT DETECTED 05/24/21 20:00 Nasal RSV (PCR) NOT DETECTED 05/24/21 20:00 Nasal B.pertussis DNA PCR NOT DETECTED 05/24/21 20:00 Nasal C.pneumoniae (PCR) NOT DETECTED 05/24/21 20:00 Erwin Human Metapneumo PCR NOT DETECTED 05/24/21 20:00 Nasal M.pneumoniae (PCR) NOT DETECTED 05/24/21 20:00 Nasal SARS-CoV-2 (PCR) NOT DETECTED 05/24/21 20:00 Stl Occult Blood (IFOB) NEGATIVE (NEGATIVE) 05/25/21 03:45 Stl C. diff Tox B Gene NEGATIVE (NEGATIVE) 05/25/21 03:45 ABX Reporting Has patient been on IV antibiotics over the past 48 hours?: Yes
[2021-05-25 09:48] LABS: ESTIMATED AVERAGE GLUCOSE 166 mg/dL (70-100); HEMOGLOBIN A1c% 7.4 % (4.27-6.07)
[2021-05-25] MEDS ORDERED: SODIUM CHLORIDE 0.9% 1,000 ML IV SCH ×2 (10:00→22:00)
[2021-05-25] MEDS: CIPROFLOXACIN 400 MG/200 ML 400 MG/200 ML BAG IV SCH ×2 (10:37→20:44)
[2021-05-25] MEDS: FINASTERIDE 5 MG TABLET PO SCH (10:38)
[2021-05-25] MEDS: VENLAFAXINE ER 37.5 MG CAPSULE PO SCH (10:38)
[2021-05-25] MEDS: TAMSULOSIN 0.4 MG CAPSULE PO SCH (10:38)
[2021-05-25] MEDS: GABAPENTIN 300 MG CAPSULE PO SCH ×2 (10:38→20:37)
[2021-05-25] MEDS: guaiFENesin/DEXTROMETHORPHAN 10 ML UDC PO PRN (12:36)
[2021-05-25] MEDS ORDERED: FUROSEMIDE 40 MG/4 ML VIAL IVP STA (13:02)
[2021-05-25] MEDS: ENOXAPARIN 150 MG/ML SYRINGE SUBQ SCH (15:51)
[2021-05-25] MEDS: PANTOPRAZOLE 40 MG TABLET PO SCH (15:51)
[2021-05-25] MEDS ORDERED: MAGNESIUM SULFATE 2 GRAM 2 GM/50 ML BAG IV ONE (18:56)
[2021-05-25] MEDS ORDERED: POTASSIUM CHLORIDE 20 MEQ TABLET PO ONE (18:56)
--- NOTE | 2021-05-25 20:04 | CT Report ---
PROCEDURE: Abdomen/Pelvis WO INDICATIONS: hematuria, UTI/ sepsis TECHNIQUE: Noncontrast 5 mm thick sections acquired from the diaphragms to the symphysis. 5 mm coronal and sagi ttal reformats were then performed. For radiation dose reduction, the following was used: automated exposure control, adjustment of mA and/or kV according to patient size. COMPARISON: None. FINDINGS: Image quality: Excellent. ABDOMEN: Lung bases: Patchy multifocal lung base opacities bilaterally. The heart is enlarged and there is hea vy coronary artery calcification versus LAD stent. Solid organs: Liver and spleen are enlarged. The liver measures 22.9 cm in length and the spleen nolvia ures 16.2 cm in length. The pancreas, gallbladder, and adrenal glands are normal. There is moderate nonspecific bilateral perinephric inflammation. No visible hydronephrosis or intrar enal calculi. Mild periureteric inflammation at the pelvic inlet. No visible ureteral calculi. Peritoneum and bowel: Unenhanced bowel loops demonstrate normal wall thickness and caliber is mild g eneralized inflammation along the right paracolic gutter inferior to the liver which is nonspecific. No free fluid or air. Nodes and vessels: No retroperitoneal or mesenteric adenopathy by size criteria. Borderline tk Aor tic node enlargement. Aorta and inferior vena cava are normal in caliber. Miscellaneous: No ventral hernias. Injection site in the anterior right abdomen. PELVIS: Genitourinary: The urinary bladder is decompressed. The wall is thickened and there is likely mild pe rivesicular inflammatory change. No stones. Miscellaneous: No inguinal hernias or adenopathy. Bones: No suspicious bony lesions. No vertebral body compression fractures. IMPRESSION: 1. Multifocal bilateral patchy opacities throughout both lower lung suggestive of pneumonia. Septic e mboli could be considered in the appropriate clinical scenario. 2. Moderate bilateral perinephric and periureteric inflammatory changes. No evidence of obstructive u ropathy or urinary calcification. Morphologic changes of the urinary bladder suggesting cystitis. Thi s may be infectious or inflammatory. 3. Hepatosplenomegaly. 4. Nonspecific generalized inflammatory changes along the right paracolic gutter uncertain etiology. No focal drainable fluid collections in the peritoneum. Reviewed by: Elle River MD on 05/25/2021 8:02 PM PST Approved by: Elle River MD on 05/25/2021 8:02 PM PST Station ID: [id number]
[2021-05-25] MEDS: ATORVASTATIN 40 MG TABLET PO SCH (20:37)
[2021-05-25] MEDS: CEFEPIME 2 GM in SODIUM CHLORIDE 0.9% MINIBAG 100 ML IV SCH (21:53)
[2021-05-25] MEDS ORDERED: VANCOMYCIN INJ 1.5 GM in SODIUM CHLORIDE 0.9% 500 ML IV SCH (22:00)
[2021-05-25] MEDS: metroNIDAZOLE 500 MG/100 ML 500 MG/100 ML BAG IV SCH (22:30)
[2021-05-26] MEDS ORDERED: VANCOMYCIN INJ 1.5 GM in SODIUM CHLORIDE 0.9% 500 ML IV SCH ×2
[2021-05-26 00:11] LABS: LACTIC ACID, VENOUS 2.9 mmol/L (0.5-2.2)
[2021-05-26] MEDS: guaiFENesin/DEXTROMETHORPHAN 10 ML UDC PO PRN ×2 (01:44→20:55)
[2021-05-26] MEDS: SODIUM CHLORIDE FLUSH 0.9% 10 ML SYRINGE IVP SCH ×3 (01:45→15:59)
[2021-05-26] MEDS: ACETAMINOPHEN 325 MG TABLET PO PRN (03:09)
[2021-05-26] MEDS: CEFEPIME 2 GM in SODIUM CHLORIDE 0.9% MINIBAG 100 ML IV SCH ×3 (05:34→20:16)
[2021-05-26 05:41] LABS: BASOPHILS % (AUTO) 0.2 %; EOSINOPHILS % (AUTO) 0.2 %; HCT - HEMATOCRIT 30.4 % (42.0-52.0); HGB - HEMOGLOBIN 9.9 g/dL (14.0-18.0); LYMPHOCYTES # (AUTO) 0.4 10^3/uL (1.5-3.5); LYMPHOCYTES % (AUTO) 7.6 %; MEAN CORPUSCULAR HEMOGLOBIN 29.2 pg (27.0-31.0); MEAN CORPUSCULAR HGB CONC 32.6 g/dL (32.0-36.0); MEAN CORPUSCULAR VOLUME 89.7 fL (80.0-94.0); MEAN PLATELET VOLUME 9.9 fL (7.4-11.4); MONOCYTES # (AUTO) 0.4 10^3/uL (0.0-1.0); MONOCYTES % (AUTO) 7.6 %; NEUTROPHILS # (AUTO) 4.5 10^3/uL (1.5-6.6); NEUTROPHILS % (AUTO) 83.5 %; PLT - PLATELET COUNT 76 10^3/uL (130-450); RED BLOOD COUNT 3.39 10^6/uL (4.70-6.10); RED CELL DISTRIBUTION WIDTH 15.7 % (12.0-15.0); WHITE BLOOD COUNT 5.4 x10^3/uL (4.8-10.8)
[2021-05-26] MEDS: ENOXAPARIN 150 MG/ML SYRINGE SUBQ SCH (06:00)
[2021-05-26 06:12] LABS: CALCIUM 7.8 mg/dL (8.5-10.3); CREATININE 2.4 mg/dL (0.6-1.2); CRP - C-REACTIVE PROTEIN 24.7 mg/dL (0-1.0); POTASSIUM 3.8 mmol/L (3.5-5.0)
[2021-05-26] MEDS: PANTOPRAZOLE 40 MG TABLET PO SCH ×2 (06:36→16:46)
[2021-05-26] MEDS: metroNIDAZOLE 500 MG/100 ML 500 MG/100 ML BAG IV SCH ×3 (06:36→22:24)
--- NOTE | 2021-05-26 07:45 | PROVIDER PROGRESS NOTE ---
Assessment/Plan - Problem List (1) Sepsis Assessment/Plan: Patient had a couple of hours overnight where he was in septic shock. This is due to pneumonia and UTI. CT of the abdomen/pelvis showed multifocal bilateral patchy opacities throughout both lower lungs suggestive of pneumonia. There was moderate bilateral perinephric and periureteric inflammatory changes. No evidence of obstructive uropathy or urinary calcification. Morphologic changes of the urinary bladder suggesting cystitis were also noted. There was nonspecific generalized inflammatory changes along the right paracolic gutter of uncertain etiology. There was no focal drainable fluid collections in the peritoneum. Antibiotics were broadened to include vancomycin, cefepime, Flagyl and Cipro. We will continue cefepime, Flagyl and Cipro IV today. Blood cultures had grown E. coli. Initial lactic acid was 2.3, then 2.9 and finally 1.5. IV fluids of normal saline at 60 mL/h was resumed. Fluids increased to 83 mL/h. Patient had a temperature of 39.2 C around 3 AM on 05/25/2021 Tylenol as needed for fever and/or pain. Anticipating patient would need 2-3 more days of hospital stay. (2) Pneumonia Assessment/Plan: As noted on CT of the abdomen/pelvis done on 05/25/2021. Patient is on cefepime, Flagyl and Cipro. Will continue. Remains normal at 5.4. Patient had a temperature of 39.2 C around 3 AM on 05/25/2021 (3) UTI (urinary tract infection) Assessment/Plan: Urine and blood cultures grew E. coli. Patient is on cefepime, Flagyl and Cipro. (4) Anemia Assessment/Plan: Stool guaiac test was negative. Iron level is 10, TIBC 287, percentage saturation 3, transferrin 205. We will hold off on administering supplemental iron while patient is in the septic state. Will order ferrous sulfate when patient recovers from infection. Hemoglobin was 9.9 (5) JONNY (acute kidney injury) Assessment/Plan: Worsened. Attending is 2.4 with estimated GFR of 63 Likely secondary to septic state and/or dehydration. IV hydration was resumed yesterday. Currently on normal saline at 83 mL/h. On Cipro, Flagyl and cefepime. (6) Diabetes mellitus type 2 in obese Assessment/Plan: We will hold patient's Metformin. HgA1C is 7.4 Accu checks before every meal and at bedtime. Sliding scale insulin. (7) Elevated troponin I level Assessment/Plan: Patient's troponin trend was 26.3 -> 24.1-> 43.3-> 129.9-> 224.9-> 160.8 Likely demand ischemia due to septic state and kidney injury. Patient was initially treated with Lovenox 135 mg subcu twice daily. This has been discontinued and patient is on Lovenox 40 mg subcu twice daily (8) Hx of coronary artery disease Assessment/Plan: Is normally on atenolol, atorvastatin and baby aspirin. However atenolol currently held due to hypotension related to sepsis. Patient being actively hydrated. We will resume atenolol when appropriate to do so. 2D echocardiogram ordered for 05/27/2021. Patient is currently chest pain-free. (9) RIO on CPAP Assessment/Plan: Resume home CPAP at bedtime. (10) Obesity (BMI 30.0-34.9) Assessment/Plan: Encourage diet and exercise. - Current Meds Current Meds: Current Medications Generic Name Dose Route Start Last Admin Trade Name Freq PRN Reason Stop Dose Admin Acetaminophen 650 mg 05/24/21 21:34 05/26/21 03:09 Acetaminophen 325 Mg Tablet PO 650 mg Q4HR PRN Administration Pain or Fever > 38C (100.4F) Aspirin 81 mg 05/25/21 09:00 05/25/21 08:38 Aspirin Ec 81 Mg Tablet PO 81 mg DAILY ARGENIS Administration Atorvastatin Calcium 80 mg 05/25/21 21:00 05/25/21 20:37 Atorvastatin 40 Mg Tablet PO 80 mg QPM ARGENIS Administration Enoxaparin Sodium 135 mg 05/25/21 16:00 05/26/21 06:00 Enoxaparin 150 Mg/Ml Syringe SUBQ Not Given BID ARGENIS Finasteride 5 mg 05/25/21 09:00 05/25/21 10:38 Finasteride 5 Mg Tablet PO 5 mg DAILY ARGENIS Administration Gabapentin 300 mg 05/25/21 09:00 05/25/21 20:37 Gabapentin 300 Mg Capsule PO 300 mg BID ARGENIS Administration Guaifenesin 10 ml 05/25/21 12:26 05/26/21 01:44 Guaifenesin/Dextromethorphan 10 Ml Udc PO 10 ml Q6HR PRN Administration Cough Ciprofloxacin 400 mg in 200 mls @ 200 mls/hr 05/25/21 09:00 05/25/21 21:44 Cipro 400 Mg/200 Ml IV Infused Q12H ARGENIS Infusion Sodium Chloride 1,000 mls @ 60 mls/hr 05/25/21 22:00 05/26/21 06:36 Normal Saline 0.9% IV 0 mls/hr .[id number] ARGENIS Infusion Cefepime HCl 2 gm/ Sodium 100 mls @ 200 mls/hr 05/25/21 22:00 05/26/21 06:12 Chloride IV Infused TID ARGENIS Infusion Metronidazole 500 mg in 100 mls @ 100 mls/hr 05/25/21 22:00 05/26/21 06:36 Flagyl 500 Mg/100 Ml IV 100 mls/hr TID ARGENIS Administration Vancomycin HCl 1.5 gm/ Sodium 500 mls @ 250 mls/hr 05/26/21 00:00 05/26/21 03:15 Chloride IV Infused Q18H ARGENIS Infusion Insulin Aspart 1 - 9 unit 05/25/21 21:00 05/25/21 21:48 Insulin Aspart 300 Unit/3 Ml Pen SUBQ 5 unit 0800,1200,1700,2100 ARGENIS Administration Protocol Pantoprazole Sodium 40 mg 05/25/21 16:00 05/26/21 06:36 Pantoprazole 40 Mg Tablet PO 40 mg BIDAC ARGENIS Administration Sodium Chloride 10 ml 05/24/21 21:34 05/25/21 13:22 Sodium Chloride Flush 0.9% 10 Ml Syringe IVP 10 ml PRN PRN Administration NEEDED PER PROVIDER ORDERS Sodium Chloride 10 ml 05/25/21 01:00 05/26/21 01:45 Sodium Chloride Flush 0.9% 10 Ml Syringe IVP Not Given 0100,0900,1700 ARGENIS Tamsulosin HCl 0.8 mg 05/25/21 09:00 05/25/21 10:38 Tamsulosin 0.4 Mg Capsule PO 0.8 mg DAILY ARGENIS Administration Venlafaxine HCl 37.5 mg 05/25/21 09:00 05/25/21 10:38 Venlafaxine Er 37.5 Mg Capsule PO 37.5 mg DAILY ARGENIS Administration - Lab Result Fish Bone Diagrams: 05/26/21 05:31 05/26/21 05:31 - Additional Planning My Orders: My Active Orders 05/25/21 09:00 Ciprofloxacin 400 mg/200 ml [Cipro 400 mg/200 ml] 400 mg in 200 ml IV Q12H Finasteride [Proscar] 5 mg PO DAILY Gabapentin [Neurontin] 300 mg PO BID Tamsulosin [Flomax] 0.8 mg PO DAILY Venlafaxine ER [Effexor ER] 37.5 mg PO DAILY 05/25/21 12:26 guaiFENesin/DEXTROMETHORPHAN [Robitussin Dm] 10 ml PO Q6HR PRN 05/25/21 16:00 Enoxaparin [Lovenox] 135 mg SUBQ BID Pantoprazole [Protonix] 40 mg PO BIDAC 05/25/21 21:00 Atorvastatin [Lipitor] 80 mg PO QPM 05/26/21 09:00 allopurinoL [Zyloprim] 300 mg PO DAILY 05/27/21 05:00 MAGNESIUM [CHEM] DAILYLAB Subjective - Subjective Patient Reports: Other (Seated comfortably in the bedside chair at time of exam. He is more alert, awake and oriented today. Breathing comfortably on room air. He complained of a headache.) Objective Vital Signs: Vital Signs - 24 hr 05/25/21 05/25/21 05/25/21 07:52 08:59 09:14 Temperature 37.0 C 36.4 C L Heart Rate [ 68 Brachial] Heart Rate [ 79 66 Monitoring electrodes] Heart Rate [ Radial] Respiratory 22 24 Rate Blood Pressure 98/56 L [Left Brachial artery] Blood Pressure 97/50 L 108/55 L [Right Brachial artery] Blood Pressure [Right Radial artery] O2 Saturation 98 96 96 05/25/21 05/25/21 05/25/21 11:51 12:25 12:29 Temperature 36.5 C Heart Rate [ Brachial] Heart Rate [ 86 Monitoring electrodes] Heart Rate [ Radial] Respiratory 28 H 28 H Rate Blood Pressure 146/73 H [Left Brachial artery] Blood Pressure [Right Brachial artery] Blood Pressure [Right Radial artery] O2 Saturation 96 87 L 93 05/25/21 05/25/21 05/25/21 12:35 13:26 14:08 Temperature 39.2 C H 36.8 C 38.8 C H Heart Rate [ Brachial] Heart Rate [ 90 90 Monitoring electrodes] Heart Rate [ Radial] Respiratory 26 H Rate Blood Pressure [Left Brachial artery] Blood Pressure 128/54 L [Right Brachial artery] Blood Pressure [Right Radial artery] O2 Saturation 90 L 91 L 05/25/21 05/25/21 05/25/21 17:00 20:51 23:49 Temperature 37.8 C 37.1 C 36.9 C Heart Rate [ Brachial] Heart Rate [ 88 73 Monitoring electrodes] Heart Rate [ 88 Radial] Respiratory 28 H 23 20 Rate Blood Pressure [Left Brachial artery] Blood Pressure 117/57 L 119/52 L [Right Brachial artery] Blood Pressure 119/64 [Right Radial artery] O2 Saturation 95 96 92 05/26/21 05/26/21 05/26/21 03:00 05:59 07:18 Temperature 39.2 C H 37.5 C 37.1 C Heart Rate [ 68 Brachial] Heart Rate [ Monitoring electrodes] Heart Rate [ 90 75 Radial] Respiratory 24 20 22 Rate Blood Pressure [Left Brachial artery] Blood Pressure 114/54 L 106/54 L 106/51 L [Right Brachial artery] Blood Pressure [Right Radial artery] O2 Saturation 93 92 94 Oxygen O2 Source CPAP I&O (Last 24 Hrs): Intake and Output Totals x24h 05/24/21 05/25/21 05/26/21 23:59 23:59 23:59 Intake Total 1000 3038.009 1172 Output Total 650 Balance 1000 2388.009 1172 Comments/Notes: General: Alert, awake, oriented x3. No acute distress. HEENT: Atraumatic, normocephalic, PERRLA, EOMI Neck: Supple, no JVD Neuro: Alert, oriented x3, no focal deficits Cardiovascular: Regular rate and rhythm, S1, S2, no murmurs. No edema Respiratory: CTABL, No respiratory distress. No wheezing, rhonchi. Mild crackles in lung bases. Abdomen: Normal bowel sounds, soft, nontender, nondistended, no splenomegaly or hepatomegaly. Extremities: No clubbing, No cyanosis, no edema. Skin: no rash, no decubitus ulcer. Dry and warm. - Results Results: Laboratory Results WBC 5.4 x10^3/uL (4.8-10.8) 05/26/21 05:31 RBC 3.39 10^6/uL (4.70-6.10) L 05/26/21 05:31 Hgb 9.9 g/dL (14.0-18.0) L 05/26/21 05:31 Hct 30.4 % (42.0-52.0) L 05/26/21 05:31 MCV 89.7 fL (80.0-94.0) 05/26/21 05:31 MCH 29.2 pg (27.0-31.0) 05/26/21 05:31 MCHC 32.6 g/dL (32.0-36.0) 05/26/21 05:31 RDW 15.7 % (12.0-15.0) H 05/26/21 05:31 Plt Count 76 10^3/uL (130-450) L 05/26/21 05:31 MPV 9.9 fL (7.4-11.4) 05/26/21 05:31 Neut # (Auto) 4.5 10^3/uL (1.5-6.6) 05/26/21 05:31 Lymph # (Auto) 0.4 10^3/uL (1.5-3.5) L 05/26/21 05:31 Ida # (Auto) 0.4 10^3/uL (0.0-1.0) 05/26/21 05:31 Eos # (Auto) 0.0 10^3/uL (0.0-0.7) 05/26/21 05:31 Baso # (Auto) 0.0 10^3/uL (0.0-0.1) 05/26/21 05:31 Absolute Nucleated RBC 0.00 x10^3/uL 05/26/21 05:31 Total Counted 100 05/25/21 05:36 Band Neuts % (Manual) 0 % (0-10) 05/25/21 05:36 Abnorm Lymph % (Manual) 0 % 05/25/21 05:36 Nucleated RBC % 0.0 /100WBC 05/26/21 05:31 Neutrophils # (Manual) 4.8 10^3/uL (1.5-6.6) 05/25/21 05:36 Lymphocytes # (Manual) 0.7 10^3/uL (1.5-3.5) L 05/25/21 05:36 Monocytes # (Manual) 0.6 10^3/uL (0.0-1.0) 05/25/21 05:36 Eosinophils # (Manual) 0.1 10^3/uL (0-0.7) 05/25/21 05:36 Basophils # (Manual) 0.0 10^3/uL (0-0.1) 05/25/21 05:36 Differential Comment MANUAL DIFFERENTIAL 05/25/21 05:36 WBC Morphology NORMAL APPEARANCE (NORMAL) 05/25/21 05:36 Platelet Estimate DECREASED (<130,000) (NORMAL) 05/25/21 05:36 Platelet Morphology NORMAL APPEARANCE (NORMAL) 05/25/21 05:36 RBC Morph Micro Appear NORMAL APPEARANCE (NORMAL) 05/25/21 05:36 D-Dimer 445.9 ng/mL (200.0-255.0) H 05/25/21 05:36 Sodium 136 mmol/L (135-145) 05/26/21 05:31 Potassium 3.8 mmol/L (3.5-5.0) 05/26/21 05:31 Chloride 99 mmol/L (101-111) L 05/26/21 05:31 Carbon Dioxide 25 mmol/L (21-32) 05/26/21 05:31 Anion Gap 12.0 (6-13) 05/26/21 05:31 BUN 51 mg/dL (6-20) H 05/26/21 05:31 Creatinine 2.4 mg/dL (0.6-1.2) H 05/26/21 05:31 Estimated GFR (MDRD) 26 (>89) L 05/26/21 05:31 Glucose 213 mg/dL (70-100) H 05/26/21 05:31 Estimat Average Glucose 166 mg/dL (70-100) H 05/25/21 05:36 Hemoglobin A1c % 7.4 % (4.27-6.07) H 05/25/21 05:36 Lactic Acid 1.5 mmol/L (0.5-2.2) 05/26/21 05:31 Calcium 7.8 mg/dL (8.5-10.3) L 05/26/21 05:31 Magnesium 2.0 mg/dL (1.7-2.8) 05/26/21 05:31 Iron 10 ug/dL (45-182) L 05/25/21 05:36 TIBC 287 ug/dL (250-450) 05/25/21 05:36 % Saturation 3 % (20-50) L 05/25/21 05:36 Transferrin 205 mg/dL (180-329) 05/25/21 05:36 Total Bilirubin 1.1 mg/dL (0.2-1.0) H 05/24/21 20:00 AST 23 IU/L (10-42) 05/24/21 20:00 ALT 21 IU/L (10-60) 05/24/21 20:00 Alkaline Phosphatase 73 IU/L (42-121) 05/24/21 20:00 Total Creatine Kinase 110 IU/L (22-269) 05/25/21 05:36 Troponin I High Sens 160.8 ng/L (2.3-19.7) H* 05/25/21 23:55 C-Reactive Protein 24.7 mg/dL (0-1.0) H 05/26/21 05:31 B-Natriuretic Peptide 246 pg/mL (5-100) H 05/26/21 05:31 Total Protein 6.6 g/dL (6.7-8.2) L 05/24/21 20:00 Albumin 3.5 g/dL (3.2-5.5) 05/24/21 20:00 Globulin 3.1 g/dL (2.1-4.2) 05/24/21 20:00 Albumin/Globulin Ratio 1.1 (1.0-2.2) 05/24/21 20:00 Lipase 34 U/L (22-51) 05/24/21 20:00 Urine Color YELLOW 05/24/21 23:50 Urine Clarity SL. CLOUDY (CLEAR) 05/24/21 23:50 Urine pH 6.0 PH (5.0-7.5) 05/24/21 23:50 Ur Specific [employer] 1.015 (1.002-1.030) 05/24/21 23:50 Urine Protein 100 mg/dL (NEGATIVE) H 05/24/21 23:50 Urine Glucose (UA) NEGATIVE mg/dL (NEGATIVE) 05/24/21 23:50 Urine Ketones NEGATIVE mg/dL (NEGATIVE) 05/24/21 23:50 Urine Occult Blood MODERATE (NEGATIVE) H 05/24/21 23:50 Urine Nitrite POSITIVE (NEGATIVE) H 05/24/21 23:50 Urine Bilirubin NEGATIVE (NEGATIVE) 05/24/21 23:50 Urine Urobilinogen 0.2 (NORMAL) E.U./dL (NORMAL) 05/24/21 23:50 Ur Leukocyte Esterase SMALL (NEGATIVE) H 05/24/21 23:50 Urine RBC 6-10 /HPF (0-5) H 05/24/21 23:50 Urine WBC >25 /HPF (0-3) H 05/24/21 23:50 Ur Squamous Epith Cells NONE SEEN (<= Few) 05/24/21 23:50 Urine Bacteria Few /HPF (None Seen) 05/24/21 23:50 Ur Microscopic Review INDICATED 05/24/21 23:50 Urine Culture Comments INDICATED 05/24/21 23:50 Nasal Adenovirus (PCR) NOT DETECTED 05/24/21 20:00 Nasal B. parapertussis DNA (PCR) NOT DETECTED 05/24/21 20:00 Nasal Coronavir 229E PCR NOT DETECTED 05/24/21 20:00 Nasal Coronavir HKU1 PCR NOT DETECTED 05/24/21 20:00 Nasal Coronavir NL63 PCR NOT DETECTED 05/24/21 20:00 Nasal Coronavir OC43 PCR NOT DETECTED 05/24/21 20:00 Nasal Enterovir/Rhinovir PCR NOT DETECTED 05/24/21 20:00 Nasal Influenza B PCR NOT DETECTED 05/24/21 20:00 Nasal Influenza A PCR NOT DETECTED 05/24/21 20:00 Nasal Parainfluen 1 PCR NOT DETECTED 05/24/21 20:00 Nasal Parainfluen 2 PCR NOT DETECTED 05/24/21 20:00 Nasal Parainfluen 3 PCR NOT DETECTED 05/24/21 20:00 Nasal Parainfluen 4 PCR NOT DETECTED 05/24/21 20:00 Nasal RSV (PCR) NOT DETECTED 05/24/21 20:00 Nasal B.pertussis DNA PCR NOT DETECTED 05/24/21 20:00 Nasal C.pneumoniae (PCR) NOT DETECTED 05/24/21 20:00 Erwin Human Metapneumo PCR NOT DETECTED 05/24/21 20:00 Nasal M.pneumoniae (PCR) NOT DETECTED 05/24/21 20:00 Nasal SARS-CoV-2 (PCR) NOT DETECTED 05/24/21 20:00 Stl Occult Blood (IFOB) NEGATIVE (NEGATIVE) 05/25/21 03:45 Stl C. diff Tox B Gene NEGATIVE (NEGATIVE) 05/25/21 03:45 ABX Reporting Has patient been on IV antibiotics over the past 48 hours?: Yes
[2021-05-26] MEDS: INSULIN ASPART 300 UNIT/3 ML PEN SUBQ SCH ×4 (08:14→20:51)
[2021-05-26] MEDS: TAMSULOSIN 0.4 MG CAPSULE PO SCH (08:18)
[2021-05-26] MEDS: GABAPENTIN 300 MG CAPSULE PO SCH ×2 (08:18→20:47)
[2021-05-26] MEDS: FINASTERIDE 5 MG TABLET PO SCH (08:18)
[2021-05-26] MEDS: SACCHAROMYCES BOULARDII 250 MG CAPSULE PO SCH ×2 (08:18→16:47)
[2021-05-26] MEDS: VENLAFAXINE ER 37.5 MG CAPSULE PO SCH (08:21)
[2021-05-26] MEDS: CIPROFLOXACIN 400 MG/200 ML 400 MG/200 ML BAG IV SCH ×2 (08:28→20:48)
[2021-05-26] MEDS: allopurinoL 100 MG TABLET PO SCH (09:36)
[2021-05-26] MEDS: ASPIRIN EC 81 MG TABLET PO SCH ×2 (09:37→10:06)
[2021-05-26] MEDS: SODIUM CHLORIDE 0.9% 1,000 ML IV SCH ×2 (11:40→20:18)
[2021-05-26] MEDS: ATORVASTATIN 40 MG TABLET PO SCH (20:47)
[2021-05-27] MEDS: SODIUM CHLORIDE FLUSH 0.9% 10 ML SYRINGE IVP SCH ×3 (00:02→16:06)
[2021-05-27] MEDS: PANTOPRAZOLE 40 MG TABLET PO SCH ×2 (05:50→16:17)
[2021-05-27] MEDS: ACETAMINOPHEN 325 MG TABLET PO PRN (05:50)
[2021-05-27] MEDS: CEFEPIME 2 GM in SODIUM CHLORIDE 0.9% MINIBAG 100 ML IV SCH (05:57)
[2021-05-27 06:03] LABS: BASOPHILS % (AUTO) 0.2 %; EOSINOPHILS # (AUTO) 0.1 10^3/uL (0.0-0.7); EOSINOPHILS % (AUTO) 1.8 %; HCT - HEMATOCRIT 31.1 % (42.0-52.0); HGB - HEMOGLOBIN 10.1 g/dL (14.0-18.0); LYMPHOCYTES # (AUTO) 0.6 10^3/uL (1.5-3.5); LYMPHOCYTES % (AUTO) 11.6 %; MEAN CORPUSCULAR HEMOGLOBIN 29.4 pg (27.0-31.0); MEAN CORPUSCULAR HGB CONC 32.5 g/dL (32.0-36.0); MEAN CORPUSCULAR VOLUME 90.4 fL (80.0-94.0); MEAN PLATELET VOLUME 10.6 fL (7.4-11.4); MONOCYTES # (AUTO) 0.4 10^3/uL (0.0-1.0); MONOCYTES % (AUTO) 8.2 %; NEUTROPHILS # (AUTO) 3.9 10^3/uL (1.5-6.6); NEUTROPHILS % (AUTO) 77.6 %; PLT - PLATELET COUNT 85 10^3/uL (130-450); RED BLOOD COUNT 3.44 10^6/uL (4.70-6.10); RED CELL DISTRIBUTION WIDTH 15.9 % (12.0-15.0)
[2021-05-27 06:34] LABS: CALCIUM 8.3 mg/dL (8.5-10.3); CRP - C-REACTIVE PROTEIN 22.9 mg/dL (0-1.0); POTASSIUM 3.5 mmol/L (3.5-5.0)
[2021-05-27] MEDS: metroNIDAZOLE 500 MG/100 ML 500 MG/100 ML BAG IV SCH ×3 (06:41→20:53)
[2021-05-27] MEDS: INSULIN ASPART 300 UNIT/3 ML PEN SUBQ SCH ×4 (07:58→20:16)
--- NOTE | 2021-05-27 08:04 | PROVIDER PROGRESS NOTE ---
Assessment/Plan - Problem List (1) Sepsis Assessment/Plan: 05/27/21 Patient continues to improve daily He has been afebrile for at least 24 hours. White blood cell count continues to be normal. He was briefly tachycardic this morning. It resolved without intervention. Systolic blood pressure in the afternoon was in the 90s. However patient's atenolol had been resumed in the late morning. Cefepime discontinued. We will continue Cipro 400 mg IV twice daily. 05/26/21 Patient had a couple of hours overnight where he was in septic shock. This is due to pneumonia and UTI. CT of the abdomen/pelvis showed multifocal bilateral patchy opacities throughout both lower lungs suggestive of pneumonia. There was moderate bilateral perinephric and periureteric inflammatory changes. No evidence of obstructive uropathy or urinary calcification. Morphologic changes of the urinary bladder suggesting cystitis were also noted. There was nonspecific generalized inflammatory changes along the right paracolic gutter of uncertain etiology. There was no focal drainable fluid collections in the peritoneum. Antibiotics were broadened to include vancomycin, cefepime, Flagyl and Cipro. We will continue cefepime, Flagyl and Cipro IV today. Blood cultures had grown E. coli. Initial lactic acid was 2.3, then 2.9 and finally 1.5. IV fluids of normal saline at 60 mL/h was resumed. Fluids increased to 83 mL/h. Patient had a temperature of 39.2 C around 3 AM on 05/25/2021 Tylenol as needed for fever and/or pain. Anticipating patient would need 2-3 more days of hospital stay. (2) Pneumonia Assessment/Plan: 05/27/21 Patient continues to improve daily He has been afebrile for at least 24 hours. White blood cell count continues to be normal. He was briefly tachycardic this morning. It resolved without intervention. Systolic blood pressure in the afternoon was in the 90s. However patient's atenolol had been resumed in the late morning. Cefepime discontinued. We will continue Cipro 400 mg IV twice daily. 05/26/[address] of the abdomen/pelvis done on 05/25/2021. Patient is on cefepime, Flagyl and Cipro. Will continue. Remains normal at 5.4. Patient had a temperature of 39.2 C around 3 AM on 05/25/2021 (3) UTI (urinary tract infection) Assessment/Plan: 05/27/21 Patient continues to improve daily He has been afebrile for at least 24 hours. White blood cell count continues to be normal. He was briefly tachycardic this morning. It resolved without intervention. Systolic blood pressure in the afternoon was in the 90s. However patient's atenolol had been resumed in the late morning. Cefepime discontinued. We will continue Cipro 400 mg IV twice daily. 05/26/21 Urine and blood cultures grew E. coli. Patient is on cefepime, Flagyl and Cipro. (5) JONNY (acute kidney injury) Assessment/Plan: 05/27/21 Improving. Creatinine is 2.0 with estimated GFR of 32 Continue IV hydration with normal saline at 83 mL/h 05/26/21 Worsened. Creatinine is 2.4 with estimated GFR of 26 Likely secondary to septic state and/or dehydration. IV hydration was resumed yesterday. Currently on normal saline at 83 mL/h. On Cipro, Flagyl and cefepime. (6) Diabetes mellitus type 2 in obese Assessment/Plan: We will hold patient's Metformin. HgA1C is 7.4 Accu checks before every meal and at bedtime. Sliding scale insulin. (7) Elevated troponin I level Assessment/Plan: Patient's troponin trend was 26.3 -> 24.1-> 43.3-> 129.9-> 224.9-> 160.8 Likely demand ischemia due to septic state and kidney injury. Patient was initially treated with Lovenox 135 mg subcu twice daily. This has been discontinued and patient is on Lovenox 40 mg subcu twice daily 2D echocardiogram done on 05/27/2021 showed an EF of 65 to 70%. Left ventricular systolic function is normal. Aortic stenosis, mitral regurgitation, mitral stenosis, pleural effusion, vegetation or pericardial effusion noted. (8) Hx of coronary artery disease Assessment/Plan: Atenolol 50mg po daily resumed 05/27/21. Also on atorvastatin and baby aspirin. 2D echocardiogram done on 05/27/2021 showed an EF of 65 to 70%. Left ventricular systolic function is normal. Aortic stenosis, mitral regurgitation, mitral stenosis, pleural effusion, vegetation or pericardial effusion noted. Patient is currently chest pain-free. (9) RIO on CPAP Assessment/Plan: On home CPAP at bedtime. (10) Obesity (BMI 30.0-34.9) Assessment/Plan: Encourage diet and exercise. - Current Meds Current Meds: Current Medications Generic Name Dose Route Start Last Admin Trade Name Freq PRN Reason Stop Dose Admin Acetaminophen 650 mg 05/24/21 21:34 05/27/21 05:50 Acetaminophen 325 Mg Tablet PO 650 mg Q4HR PRN Administration Pain or Fever > 38C (100.4F) Allopurinol 300 mg 05/26/21 09:00 05/26/21 09:36 Allopurinol 100 Mg Tablet PO Not Given DAILY ARGENIS Aspirin 81 mg 05/25/21 09:00 05/26/21 10:06 Aspirin Ec 81 Mg Tablet PO 81 mg DAILY ARGENIS Administration Atorvastatin Calcium 80 mg 05/25/21 21:00 05/26/21 20:47 Atorvastatin 40 Mg Tablet PO 80 mg QPM ARGENIS Administration Finasteride 5 mg 05/25/21 09:00 05/26/21 08:18 Finasteride 5 Mg Tablet PO 5 mg DAILY ARGENIS Administration Gabapentin 300 mg 05/25/21 09:00 05/26/21 20:47 Gabapentin 300 Mg Capsule PO 300 mg BID ARGENIS Administration Guaifenesin 10 ml 05/25/21 12:26 05/26/21 20:55 Guaifenesin/Dextromethorphan 10 Ml Udc PO 10 ml Q6HR PRN Administration Cough Ciprofloxacin 400 mg in 200 mls @ 200 mls/hr 05/25/21 09:00 05/26/21 22:00 Cipro 400 Mg/200 Ml IV Infused Q12H ARGENIS Infusion Cefepime HCl 2 gm/ Sodium 100 mls @ 200 mls/hr 05/25/21 22:00 05/27/21 06:35 Chloride IV Infused TID ARGENIS Infusion Metronidazole 500 mg in 100 mls @ 100 mls/hr 05/25/21 22:00 05/27/21 06:41 Flagyl 500 Mg/100 Ml IV 100 mls/hr TID ARGENIS Administration Sodium Chloride 1,000 mls @ 83.333 mls/hr 05/26/21 10:45 05/27/21 06:12 Normal Saline 0.9% IV 0 mls/hr .Q12H ARGENIS Infusion Insulin Aspart 3 - 11 unit 05/26/21 21:00 05/27/21 07:58 Insulin Aspart 300 Unit/3 Ml Pen SUBQ 5 unit 0800,1200,1700,2100 ARGENIS Administration Protocol Pantoprazole Sodium 40 mg 05/25/21 16:00 05/27/21 05:50 Pantoprazole 40 Mg Tablet PO 40 mg BIDAC ARGENIS Administration Saccharomyces Boulardii 500 mg 05/26/21 08:00 05/26/21 16:47 Saccharomyces Boulardii 250 Mg Capsule PO 500 mg BIDWM ARGENIS Administration Sodium Chloride 10 ml 05/24/21 21:34 05/25/21 13:22 Sodium Chloride Flush 0.9% 10 Ml Syringe IVP 10 ml PRN PRN Administration NEEDED PER PROVIDER ORDERS Sodium Chloride 10 ml 05/25/21 01:00 05/27/21 00:02 Sodium Chloride Flush 0.9% 10 Ml Syringe IVP Not Given 0100,0900,1700 ARGENIS Tamsulosin HCl 0.8 mg 05/25/21 09:00 05/26/21 08:18 Tamsulosin 0.4 Mg Capsule PO 0.8 mg DAILY ARGENIS Administration Venlafaxine HCl 37.5 mg 05/25/21 09:00 05/26/21 08:21 Venlafaxine Er 37.5 Mg Capsule PO 37.5 mg DAILY ARGENIS Administration - Lab Result Fish Bone Diagrams: 05/27/21 05:58 05/27/21 05:58 - Additional Planning My Orders: My Active Orders 05/26/21 09:00 allopurinoL [Zyloprim] 300 mg PO DAILY 05/26/21 10:45 Sodium Chloride 0.9% [Normal Saline 0.9%] 1,000 ml IV 83.333 mls/hr 05/27/21 09:00 Enoxaparin [Lovenox] 40 mg SUBQ DAILY atenoloL [Tenormin] 50 mg PO DAILY Subjective - Subjective Patient Reports: Other (Sitting comfortably in bed at time of exam. Alert, awake and oriented x4. Breathing comfortably on room air. Denied any complaints. Earlier in the morning he had complained of mild dizziness. He was briefly tachycardic. This resolved on its own.) Objective Vital Signs: Vital Signs - 24 hr 05/26/21 05/26/21 05/26/21 11:20 14:31 15:56 Temperature 36.3 C L 37.4 C 37.3 C Heart Rate [ 89 Brachial] Heart Rate [ 90 93 Monitoring electrodes] Respiratory 23 24 22 Rate Blood Pressure 120/49 L 114/44 L 152/74 H [Right Brachial artery] O2 Saturation 93 91 L 92 05/26/21 05/26/21 05/26/21 20:52 21:06 23:34 Temperature 36.7 C 36.5 C Heart Rate [ Brachial] Heart Rate [ 91 88 Monitoring electrodes] Respiratory 24 22 20 Rate Blood Pressure 124/56 L 106/62 [Right Brachial artery] O2 Saturation 93 94 98 05/27/21 05/27/21 05/27/21 02:59 06:00 07:29 Temperature 36.8 C 36.8 C Heart Rate [ Brachial] Heart Rate [ 87 94 146 H Monitoring electrodes] Respiratory 16 20 Rate Blood Pressure 129/73 141/80 H 141/92 H [Right Brachial artery] O2 Saturation 97 99 Oxygen O2 Source CPAP I&O (Last 24 Hrs): Intake and Output Totals x24h 05/25/21 05/26/21 05/27/21 23:59 23:59 23:59 Intake Total 3038.009 3761.388 893.945 Output Total 650 550 625 Balance 2388.009 3211.388 268.945 Comments/Notes: General: Alert, awake, oriented x3. No acute distress. HEENT: Atraumatic, normocephalic, PERRLA, EOMI Neck: Supple, no JVD Neuro: Alert, oriented x3, no focal deficits Cardiovascular: Regular rate and rhythm, S1, S2, no murmurs. No edema Respiratory: CTABL, No respiratory distress. No wheezing, rhonchi. Mild crackles in lung bases. Abdomen: Normal bowel sounds, soft, nontender, nondistended, no splenomegaly or hepatomegaly. Extremities: No clubbing, No cyanosis, no edema. Skin: no rash, no decubitus ulcer. Dry and warm. - Results Results: Laboratory Results WBC 5.0 x10^3/uL (4.8-10.8) 05/27/21 05:58 RBC 3.44 10^6/uL (4.70-6.10) L 05/27/21 05:58 Hgb 10.1 g/dL (14.0-18.0) L 05/27/21 05:58 Hct 31.1 % (42.0-52.0) L 05/27/21 05:58 MCV 90.4 fL (80.0-94.0) 05/27/21 05:58 MCH 29.4 pg (27.0-31.0) 05/27/21 05:58 MCHC 32.5 g/dL (32.0-36.0) 05/27/21 05:58 RDW 15.9 % (12.0-15.0) H 05/27/21 05:58 Plt Count 85 10^3/uL (130-450) L 05/27/21 05:58 MPV 10.6 fL (7.4-11.4) 05/27/21 05:58 Neut # (Auto) 3.9 10^3/uL (1.5-6.6) 05/27/21 05:58 Lymph # (Auto) 0.6 10^3/uL (1.5-3.5) L 05/27/21 05:58 [place] # (Auto) 0.4 10^3/uL (0.0-1.0) 05/27/21 05:58 Eos # (Auto) 0.1 10^3/uL (0.0-0.7) 05/27/21 05:58 Baso # (Auto) 0.0 10^3/uL (0.0-0.1) 05/27/21 05:58 Absolute Nucleated RBC 0.00 x10^3/uL 05/27/21 05:58 Total Counted 100 05/25/21 05:36 Band Neuts % (Manual) 0 % (0-10) 05/25/21 05:36 Abnorm Lymph % (Manual) 0 % 05/25/21 05:36 Nucleated RBC % 0.0 /100WBC 05/27/21 05:58 Neutrophils # (Manual) 4.8 10^3/uL (1.5-6.6) 05/25/21 05:36 Lymphocytes # (Manual) 0.7 10^3/uL (1.5-3.5) L 05/25/21 05:36 Monocytes # (Manual) 0.6 10^3/uL (0.0-1.0) 05/25/21 05:36 Eosinophils # (Manual) 0.1 10^3/uL (0-0.7) 05/25/21 05:36 Basophils # (Manual) 0.0 10^3/uL (0-0.1) 05/25/21 05:36 Differential Comment MANUAL DIFFERENTIAL 05/25/21 05:36 WBC Morphology NORMAL APPEARANCE (NORMAL) 05/25/21 05:36 Platelet Estimate DECREASED (<130,000) (NORMAL) 05/25/21 05:36 Platelet Morphology NORMAL APPEARANCE (NORMAL) 05/25/21 05:36 RBC Morph Micro Appear NORMAL APPEARANCE (NORMAL) 05/25/21 05:36 D-Dimer 445.9 ng/mL (200.0-255.0) H 05/25/21 05:36 Sodium 135 mmol/L (135-145) 05/27/21 05:58 Potassium 3.5 mmol/L (3.5-5.0) 05/27/21 05:58 Chloride 98 mmol/L (101-111) L 05/27/21 05:58 Carbon Dioxide 25 mmol/L (21-32) 05/27/21 05:58 Anion Gap 12.0 (6-13) 05/27/21 05:58 BUN 48 mg/dL (6-20) H 05/27/21 05:58 Creatinine 2.0 mg/dL (0.6-1.2) H 05/27/21 05:58 Estimated GFR (MDRD) 32 (>89) L 05/27/21 05:58 Glucose 211 mg/dL (70-100) H 05/27/21 05:58 Estimat Average Glucose 166 mg/dL (70-100) H 05/25/21 05:36 Hemoglobin A1c % 7.4 % (4.27-6.07) H 05/25/21 05:36 Lactic Acid 1.5 mmol/L (0.5-2.2) 05/26/21 05:31 Calcium 8.3 mg/dL (8.5-10.3) L 05/27/21 05:58 Magnesium 2.0 mg/dL (1.7-2.8) 05/27/21 05:58 Iron 10 ug/dL (45-182) L 05/25/21 05:36 TIBC 287 ug/dL (250-450) 05/25/21 05:36 % Saturation 3 % (20-50) L 05/25/21 05:36 Transferrin 205 mg/dL (180-329) 05/25/21 05:36 Total Bilirubin 1.1 mg/dL (0.2-1.0) H 05/24/21 20:00 AST 23 IU/L (10-42) 05/24/21 20:00 ALT 21 IU/L (10-60) 05/24/21 20:00 Alkaline Phosphatase 73 IU/L (42-121) 05/24/21 20:00 Total Creatine Kinase 110 IU/L (22-269) 05/25/21 05:36 Troponin I High Sens 160.8 ng/L (2.3-19.7) H* 05/25/21 23:55 C-Reactive Protein 22.9 mg/dL (0-1.0) H 05/27/21 05:58 B-Natriuretic Peptide 246 pg/mL (5-100) H 05/26/21 05:31 Total Protein 6.6 g/dL (6.7-8.2) L 05/24/21 20:00 Albumin 3.5 g/dL (3.2-5.5) 05/24/21 20:00 Globulin 3.1 g/dL (2.1-4.2) 05/24/21 20:00 Albumin/Globulin Ratio 1.1 (1.0-2.2) 05/24/21 20:00 Lipase 34 U/L (22-51) 05/24/21 20:00 Urine Color YELLOW 05/24/21 23:50 Urine Clarity SL. CLOUDY (CLEAR) 05/24/21 23:50 Urine pH 6.0 PH (5.0-7.5) 05/24/21 23:50 Ur Specific [place] 1.015 (1.002-1.030) 05/24/21 23:50 Urine Protein 100 mg/dL (NEGATIVE) H 05/24/21 23:50 Urine Glucose (UA) NEGATIVE mg/dL (NEGATIVE) 05/24/21 23:50 Urine Ketones NEGATIVE mg/dL (NEGATIVE) 05/24/21 23:50 Urine Occult Blood MODERATE (NEGATIVE) H 05/24/21 23:50 Urine Nitrite POSITIVE (NEGATIVE) H 05/24/21 23:50 Urine Bilirubin NEGATIVE (NEGATIVE) 05/24/21 23:50 Urine Urobilinogen 0.2 (NORMAL) E.U./dL (NORMAL) 05/24/21 23:50 Ur Leukocyte Esterase SMALL (NEGATIVE) H 05/24/21 23:50 Urine RBC 6-10 /HPF (0-5) H 05/24/21 23:50 Urine WBC >25 /HPF (0-3) H 05/24/21 23:50 Ur Squamous Epith Cells NONE SEEN (<= Few) 05/24/21 23:50 Urine Bacteria Few /HPF (None Seen) 05/24/21 23:50 Ur Microscopic Review INDICATED 05/24/21 23:50 Urine Culture Comments INDICATED 05/24/21 23:50 Nasal Adenovirus (PCR) NOT DETECTED 05/24/21 20:00 Nasal B. parapertussis DNA (PCR) NOT DETECTED 05/24/21 20:00 Nasal Coronavir 229E PCR NOT DETECTED 05/24/21 20:00 Nasal Coronavir HKU1 PCR NOT DETECTED 05/24/21 20:00 Nasal Coronavir NL63 PCR NOT DETECTED 05/24/21 20:00 Nasal Coronavir OC43 PCR NOT DETECTED 05/24/21 20:00 Nasal Enterovir/Rhinovir PCR NOT DETECTED 05/24/21 20:00 Nasal Influenza B PCR NOT DETECTED 05/24/21 20:00 Nasal Influenza A PCR NOT DETECTED 05/24/21 20:00 Nasal Parainfluen 1 PCR NOT DETECTED 05/24/21 20:00 Nasal Parainfluen 2 PCR NOT DETECTED 05/24/21 20:00 Nasal Parainfluen 3 PCR NOT DETECTED 05/24/21 20:00 Nasal Parainfluen 4 PCR NOT DETECTED 05/24/21 20:00 Nasal RSV (PCR) NOT DETECTED 05/24/21 20:00 Nasal B.pertussis DNA PCR NOT DETECTED 05/24/21 20:00 Nasal C.pneumoniae (PCR) NOT DETECTED 05/24/21 20:00 Erwin Human Metapneumo PCR NOT DETECTED 05/24/21 20:00 Nasal M.pneumoniae (PCR) NOT DETECTED 05/24/21 20:00 Nasal SARS-CoV-2 (PCR) NOT DETECTED 05/24/21 20:00 Stl Occult Blood (IFOB) NEGATIVE (NEGATIVE) 05/25/21 03:45 Stl C. diff Tox B Gene NEGATIVE (NEGATIVE) 05/25/21 03:45 ABX Reporting Has patient been on IV antibiotics over the past 48 hours?: Yes
[2021-05-27] MEDS: SACCHAROMYCES BOULARDII 250 MG CAPSULE PO SCH ×2 (08:05→16:17)
[2021-05-27] MEDS ORDERED: atenoloL 25 MG TABLET PO SCH (09:00)
[2021-05-27] MEDS: allopurinoL 100 MG TABLET PO SCH (09:35)
[2021-05-27] MEDS: GABAPENTIN 300 MG CAPSULE PO SCH ×2 (09:36→20:13)
[2021-05-27] MEDS: ASPIRIN EC 81 MG TABLET PO SCH (09:36)
[2021-05-27] MEDS: TAMSULOSIN 0.4 MG CAPSULE PO SCH (09:36)
[2021-05-27] MEDS: FINASTERIDE 5 MG TABLET PO SCH (09:37)
[2021-05-27] MEDS: ENOXAPARIN 40 MG/0.4 ML SYRINGE SUBQ SCH (09:37)
[2021-05-27] MEDS: VENLAFAXINE ER 37.5 MG CAPSULE PO SCH (09:47)
[2021-05-27] MEDS: CIPROFLOXACIN 400 MG/200 ML 400 MG/200 ML BAG IV SCH ×2 (09:48→20:13)
[2021-05-27] MEDS: SODIUM CHLORIDE 0.9% 1,000 ML IV SCH (13:46)
[2021-05-27] MEDS ORDERED: SODIUM CHLORIDE 0.9% 500 ML IV ONE (14:28)
[2021-05-27] MEDS: guaiFENesin/DEXTROMETHORPHAN 10 ML UDC PO PRN (20:12)
[2021-05-27] MEDS: ATORVASTATIN 40 MG TABLET PO SCH (20:13)
[2021-05-28] MEDS ORDERED: SIMETHICONE CHEW 80 MG TABLET PO PRN (01:31)
[2021-05-28] MEDS: SODIUM CHLORIDE 0.9% 1,000 ML IV SCH (03:51)
[2021-05-28] MEDS: SODIUM CHLORIDE FLUSH 0.9% 10 ML SYRINGE IVP SCH ×3 (05:02→16:49)
[2021-05-28] MEDS: PANTOPRAZOLE 40 MG TABLET PO SCH ×2 (05:49→16:48)
[2021-05-28] MEDS: metroNIDAZOLE 500 MG/100 ML 500 MG/100 ML BAG IV SCH (05:50)
--- NOTE | 2021-05-28 07:51 | PROVIDER PROGRESS NOTE ---
Subjective - Prog Note Date Prog Note Date: 05/28/21 - Subjective Subjective: He reports feeling much better today. Denies any chest pain or dyspnea. Still has an occasional nonproductive cough. Current Medications - Current Medications Current Medications: Active Medications Acetaminophen (Acetaminophen 325 Mg Tablet) 650 mg PO Q4HR PRN PRN Reason: Pain or Fever > 38C (100.4F) Last Admin: 05/27/21 05:50 Dose: 650 mg Allopurinol (Allopurinol 100 Mg Tablet) 300 mg PO DAILY REPLACED BY [facility] Last Admin: 05/28/21 08:21 Dose: 300 mg Aspirin (Aspirin Ec 81 Mg Tablet) 81 mg PO DAILY REPLACED BY [facility] Last Admin: 05/28/21 08:24 Dose: 81 mg Atenolol (Atenolol 25 Mg Tablet) 25 mg PO DAILY REPLACED BY [facility] Last Admin: 05/28/21 08:25 Dose: 25 mg Atorvastatin Calcium (Atorvastatin 40 Mg Tablet) 80 mg PO QPM REPLACED BY [facility] Last Admin: 05/27/21 20:13 Dose: 80 mg Enoxaparin Sodium (Enoxaparin 40 Mg/0.4 Ml Syringe) 40 mg SUBQ DAILY REPLACED BY [facility] Last Admin: 05/28/21 08:25 Dose: 40 mg Finasteride (Finasteride 5 Mg Tablet) 5 mg PO DAILY REPLACED BY [facility] Last Admin: 05/28/21 08:25 Dose: 5 mg Gabapentin (Gabapentin 300 Mg Capsule) 300 mg PO BID REPLACED BY [facility] Last Admin: 05/28/21 08:22 Dose: 300 mg Guaifenesin (Guaifenesin/Dextromethorphan 10 Ml Udc) 10 ml PO Q6HR PRN PRN Reason: Cough Last Admin: 05/27/21 20:12 Dose: 10 ml Ciprofloxacin (Cipro 400 Mg/200 Ml) 400 mg in 200 mls @ 200 mls/hr IV Q12H REPLACED BY [facility] Last Admin: 05/28/21 08:30 Dose: 200 mls/hr Insulin Aspart (Insulin Aspart 300 Unit/3 Ml Pen) 3 - 11 unit SUBQ 08 00,1200,1700,2100 REPLACED BY [facility]; Protocol Last Admin: 05/28/21 08:06 Dose: 5 unit Insulin Glargine (Insulin Glargine 300 Unit/3 Ml Pen) 10 unit SUBQ DAILY REPLACED BY [facility] Last Admin: 05/28/21 08:30 Dose: 10 unit Multivitamins/Minerals (Multivitamin W/Minerals Tablet) 1 tab PO DAILYWM REPLACED BY [facility] Last Admin: 05/28/21 08:08 Dose: 1 tab Pantoprazole Sodium (Pantoprazole 40 Mg Tablet) 40 mg PO BIDAC REPLACED BY [facility] Last Admin: 05/28/21 05:49 Dose: 40 mg Saccharomyces Boulardii (Saccharomyces Boulardii 250 Mg Capsule) 500 mg PO BIDWM REPLACED BY [facility] Last Admin: 05/28/21 08:08 Dose: 500 mg Simethicone (Simethicone Chew 80 Mg Tablet) 80 mg PO 0900,1300,1800,2100 PRN PRN Reason: Gas Last Admin: 05/28/21 01:43 Dose: 80 mg Sodium Chloride (Sodium Chloride Flush 0.9% 10 Ml Syringe) 10 ml IVP PRN PRN PRN Reason: NEEDED PER PROVIDER ORDERS Last Admin: 05/25/21 13:22 Dose: 10 ml Sodium Chloride (Sodium Chloride Flush 0.9% 10 Ml Syringe) 10 ml IVP 0100,0900,1700 REPLACED BY [facility] Last Admin: 05/28/21 05:02 Dose: Not Given Tamsulosin HCl (Tamsulosin 0.4 Mg Capsule) 0.8 mg PO DAILY REPLACED BY [facility] Last Admin: 05/27/21 09:36 Dose: 0.8 mg Venlafaxine HCl (Venlafaxine Er 37.5 Mg Capsule) 37.5 mg PO DAILY REPLACED BY [facility] Last Admin: 05/27/21 09:47 Dose: 37.5 mg Atenolol [Tenormin] 50 mg PO DAILY 05/25/21 Atorvastatin Calcium [Lipitor] 80 mg PO QPM 05/25/21 Cyanocobalamin [Vitamin B-12] 1,000 mcg IM Q30D 05/25/21 Finasteride [Proscar] 5 mg PO DAILY 05/25/21 Gabapentin [Neurontin] 300 mg PO BID 05/25/21 Meloxicam [Mobic] 7.5 mg PO DAILY 05/25/21 Pantoprazole Sodium 40 mg PO BIDAC 05/25/21 Tamsulosin [Flomax] 0.8 mg PO DAILY 05/25/21 Valsartan/Hydrochlorothiazide [Diovan Hct 320-25 mg Tablet] 1 each PO DAILY 05/25/21 Venlafaxine ER [Effexor ER] 37.5 mg PO DAILY 05/25/21 allopurinoL [Allopurinol] 300 mg PO DAILY 05/25/21 metFORMIN [Glucophage] 500 mg PO BIDWM 05/25/21 Objective - Vital Signs/Intake & Output Reviewed Vital Signs: Yes Vital Signs: Vital Signs x48h Temp Pulse Pulse Resp BP Pulse Ox 05/28/21 06:00 36.7 C 74 20 108/92 H 05/28/21 02:59 36.7 C 70 18 134/74 H 95 05/28/21 00:07 36.4 C L 83 18 120/67 96 Intake & Output: Intake & Output 05/25/21 05/26/21 05/27/21 05/28/21 23:59 23:59 23:59 23:59 Intake Total 3038.009 3761.388 4577.065 566.88 Output Total 369 161 6180 350 Balance 2388.009 3211.388 3252.065 216.88 - Objective General Appearance: positive: No acute distress, Alert Eyes Bilateral: positive: Normal inspection, Conjunctivae nml ENT: positive: ENT inspection nml Neck: positive: Nml inspection Respiratory: positive: No respiratory distress, Rhonchi. negative: Wheezes, Rales Cardiovascular: positive: Regular rate & rhythm. negative: Tachycardia, S ystolic murmur Abdomen: positive: Non-tender, No distention. negative: Tenderness Skin: positive: Warm, Dry Extremities: positive: No pedal edema Neurologic/Psychiatric: positive: Motor nml. negative: Disoriented to person, Disoriented to place - Lab Results Fish Bones: 05/28/21 10:10 05/28/21 10:10 ABX Reporting Has patient been on IV antibiotics over the past 48 hours?: Yes Sepsis Event Note (H) - Evaluation Current Stage of Sepsis: Resolved Possible source of Sepsis: positive: Genitourinary - Sepsis Criteria Sepsis Criteria: Recorded Temperature greater than 38.3C or Less than 36C, Recorded Heart Rate greater than 90 bpm, Metabolic: lactate > 2 mmol/L Assessment/Plan - Problem List (1) Sepsis Impression: This is secondary to E. coli UTI and bacteremia. The sepsis is now resolved. The E. coli is pansensitive and he is on ciprofloxacin IV. We will switch him to oral ciprofloxacin in preparation for discharge. (2) E coli bacteremia Impression: Blood cultures grew E. coli which is secondary to the urinary tract infection as that also grew E. coli. It is pansensitive. He is now on ciprofloxacin and we will switch him to p.o. ciprofloxacin in preparation for discharge. He will need a total of 2 weeks of therapy. We will not repeat blood cultures given he is clinically improved without leukocytosis or fever. (3) UTI (urinary tract infection) Impression: This is the cause of his sepsis and E. coli bacteremia. Cultures grew E. coli. CT revealed no obstruction but did reveal bilateral perinephric and periureteric changes as well as evidence of cystitis. We will continue ciprofloxacin as mentioned above for 2 weeks of therapy. (4) JONNY (acute kidney injury) Impression: This is improving. His creatinine peaked at 2.4 and today it is down to 1.6. Suspect this may have been due to ATN given his borderline hypotension or pre- renal injury from volume depletion. Imaging revealed no evidence of obstruction. We will discontinue IV fluids and monitor his renal function to ensure it is heading in the right direction. We will also hold his home valsa rtan hydrochlorothiazide. If his renal function continues to improve then he can be discharged tomorrow. (5) Pneumonia due to COVID-19 virus Impression: His x-ray reveals bilateral infiltrates but he is not hypoxic. He is vaccinated. There is no indication for steroids. (6) Elevated troponin I level Impression: His troponins peaked at 220 which was felt to be demand ischemia secondary to the sepsis and acute kidney injury. Echocardiogram revealed no wall motion abnormalities and a preserved ejection fraction. We are continuing aspirin, atenolol, Lipitor given his history of coronary artery disease. (7) Thrombocytopenia Impression: This is stable. This is likely secondary to sepsis. There has been no evidence of bleeding. We will continue to monitor as he treat underlying infection. (8) Hx of coronary artery disease Impression: He has a known history of coronary artery disease. Although his troponins were elevated as mentioned above, this was felt to be demand ischemia. We are continuing aspirin, atenolol, Lipitor. (9) Diabetes mellitus type 2 in obese Impression: His blood glucose has been poorly controlled during this hospitalization as it has been around 200. His A1c 7.4% and he is on Metformin alone at home. We will add Lantus 10 units this morning and continue sliding scale. Continue carb controlled diet. (10) SVT (supraventricular tachycardia) Impression: He had an episode of SVT yesterday with a heart rate in the 140s. This was brief and broke on its own. We have since resumed his home atenolol. (11) RIO on CPAP Impression: Stable. Continue CPAP.
[2021-05-28] MEDS ORDERED: MULTIVITAMIN W/MINERALS TABLET PO SCH (08:00)
[2021-05-28] MEDS: INSULIN ASPART 300 UNIT/3 ML PEN SUBQ SCH ×4 (08:06→20:42)
[2021-05-28] MEDS: SACCHAROMYCES BOULARDII 250 MG CAPSULE PO SCH ×2 (08:08→16:49)
[2021-05-28] MEDS: allopurinoL 100 MG TABLET PO SCH (08:21)
[2021-05-28] MEDS: GABAPENTIN 300 MG CAPSULE PO SCH ×2 (08:22→20:42)
[2021-05-28] MEDS: ASPIRIN EC 81 MG TABLET PO SCH (08:24)
[2021-05-28] MEDS: atenoloL 25 MG TABLET PO SCH (08:25)
[2021-05-28] MEDS: ENOXAPARIN 40 MG/0.4 ML SYRINGE SUBQ SCH (08:25)
[2021-05-28] MEDS: FINASTERIDE 5 MG TABLET PO SCH (08:25)
[2021-05-28] MEDS: CIPROFLOXACIN 400 MG/200 ML 400 MG/200 ML BAG IV SCH (08:30)
[2021-05-28] MEDS: INSULIN GLARGINE 300 UNIT/3 ML PEN SUBQ SCH (08:30)
[2021-05-28] MEDS: VENLAFAXINE ER 37.5 MG CAPSULE PO SCH (09:17)
[2021-05-28] MEDS: TAMSULOSIN 0.4 MG CAPSULE PO SCH (09:17)
[2021-05-28 10:17] LABS: BASOPHILS % (AUTO) 0.4 %; EOSINOPHILS # (AUTO) 0.2 10^3/uL (0.0-0.7); EOSINOPHILS % (AUTO) 3.7 %; HCT - HEMATOCRIT 28.6 % (42.0-52.0); HGB - HEMOGLOBIN 9.3 g/dL (14.0-18.0); LYMPHOCYTES # (AUTO) 0.4 10^3/uL (1.5-3.5); LYMPHOCYTES % (AUTO) 9.1 %; MEAN CORPUSCULAR HEMOGLOBIN 29.1 pg (27.0-31.0); MEAN CORPUSCULAR HGB CONC 32.5 g/dL (32.0-36.0); MEAN CORPUSCULAR VOLUME 89.4 fL (80.0-94.0); MEAN PLATELET VOLUME 9.9 fL (7.4-11.4); MONOCYTES # (AUTO) 0.4 10^3/uL (0.0-1.0); MONOCYTES % (AUTO) 8.7 %; NEUTROPHILS # (AUTO) 3.7 10^3/uL (1.5-6.6); NEUTROPHILS % (AUTO) 77.7 %; PLT - PLATELET COUNT 78 10^3/uL (130-450); RED CELL DISTRIBUTION WIDTH 16.2 % (12.0-15.0); WHITE BLOOD COUNT 4.8 x10^3/uL (4.8-10.8)
[2021-05-28 10:26] LABS: CALCIUM 7.9 mg/dL (8.5-10.3); CREATININE 1.6 mg/dL (0.6-1.2); POTASSIUM 3.7 mmol/L (3.5-5.0)
[2021-05-28] MEDS ORDERED: BENZONATATE 100 MG CAPSULE PO PRN (12:08)
[2021-05-28] MEDS: CIPROFLOXACIN 250 MG TABLET PO SCH (20:42)
[2021-05-28] MEDS: ATORVASTATIN 40 MG TABLET PO SCH (20:42)
[2021-05-29] MEDS: SODIUM CHLORIDE FLUSH 0.9% 10 ML SYRINGE IVP SCH ×2 (00:41→07:51)
[2021-05-29 05:58] LABS: BASOPHILS % (AUTO) 0.4 %; EOSINOPHILS # (AUTO) 0.2 10^3/uL (0.0-0.7); EOSINOPHILS % (AUTO) 4.3 %; HCT - HEMATOCRIT 29.7 % (42.0-52.0); HGB - HEMOGLOBIN 9.6 g/dL (14.0-18.0); LYMPHOCYTES # (AUTO) 0.7 10^3/uL (1.5-3.5); MEAN CORPUSCULAR HGB CONC 32.3 g/dL (32.0-36.0); MEAN CORPUSCULAR VOLUME 89.7 fL (80.0-94.0); MEAN PLATELET VOLUME 10.3 fL (7.4-11.4); MONOCYTES # (AUTO) 0.4 10^3/uL (0.0-1.0); NEUTROPHILS # (AUTO) 3.5 10^3/uL (1.5-6.6); NEUTROPHILS % (AUTO) 72.7 %; PLT - PLATELET COUNT 114 10^3/uL (130-450); RED BLOOD COUNT 3.31 10^6/uL (4.70-6.10); RED CELL DISTRIBUTION WIDTH 16.4 % (12.0-15.0); WHITE BLOOD COUNT 4.9 x10^3/uL (4.8-10.8)
[2021-05-29 06:04] LABS: CALCIUM 8.1 mg/dL (8.5-10.3); CREATININE 1.4 mg/dL (0.6-1.2); POTASSIUM 3.8 mmol/L (3.5-5.0)
[2021-05-29] MEDS: PANTOPRAZOLE 40 MG TABLET PO SCH (06:16)
--- NOTE | 2021-05-29 07:43 | Discharge Plan ---
Discharge Plan Problem Reviewed?: Yes Disposition: Home, Self Care Condition: Stable Prescriptions: Ciprofloxacin [Cipro] 500 mg PO BID 10 Days #42 tablet Saccharomyces Boulardii [Florastor] 250 mg PO BIDWM 10 Days #20 cap Benzonatate [Tessalon] 100 mg PO TID PRN #14 cap PRN Reason: Cough Valsartan 160 mg PO DAILY #30 tablet Diet: Diabetic Activity Restrictions: Activity as Tolerated Health Concerns: You were admitted to the hospital because of fevers due to a urinary tract infection that spread to your blood. You were treated with IV fluids and IV antibiotics with improvement. The bacteria that grew in your urine also grew in your blood and this was the likely source of the infection. We have sent switched you to a pill form of antibiotics and you have remained stable. He diego l continue this antibiotic for a total of 2 weeks. You were also noted to be dehydrated during this hospitalization and we treated you with IV fluids. Your kidney numbers were initially elevated but these have improved and are now close to your baseline. Your blood glucose has been elevated during this hospitalization at around 200. Your A1c came back at 7.4%. This tells us that your blood sugars are relatively well controlled for the most part. We will continue the Metformin on discharge but please continue to check your blood sugars at home and follow-up with your primary care physician as you may need adjustment of your medications for your diabetes if your blood glucose is persistently close to 200. Plan of Treatment: You will need to take ciprofloxacin 500 mg twice a day until June 08. This will complete 2 weeks of therapy for the bacterial infection. I have also recommended that you stop taking meloxicam as this can affect your kidneys. You may use Tylenol instead for pain control. I also recommend that you stop taking your blood pressure medication called Diovan which includes valsartan and hydrochlorothiazide. Please instead begin to take valsartan 160 mg by itself. Care Goals: The goal is to finish the antibiotics to treat the bacterial infection. Assessment: The patient expressed understanding of the treatment plan. Additional Instructions or Follow Up instructions: Please follow-up with your primary care physician within 1 week. It is recommended that you have blood work obtained during your next visit to ensure your kidney numbers are stable. No Smoking: If you smoke, Please STOP! Call for help.
[2021-05-29] MEDS: INSULIN ASPART 300 UNIT/3 ML PEN SUBQ SCH ×2 (07:50→11:38)
--- NOTE | 2021-05-29 07:50 | DISCHARGE SUMMARY ---
Discharge Summary Admit Date: 05/24/21 Discharge Date: 05/29/21 Discharging Provider: Tino Encarnacion Primary Care Provider: [facility], [place] Code Status: Attempt Resuscitation Condition at Discharge: Stable Discharge Disposition: 01 Home, Self Care - DIAGNOSES Admission Diagnoses: Acute kidney injury Dizziness Dehydration Fever Abnormal chest x-ray Anemia RIO on CPAP History of coronary artery disease Diabetes mellitus type 2 in obese Obesity Discharge Diagnoses with Status of Each Condition: Sepsis - resolved. E. coli bacteremia - improved. UTI - improved. Acute kidney injury - improved. Pneumonia due to COVID-19 virus - stable. Elevated troponin - stable. Thrombocytopenia - resolved. History of coronary artery disease - stable. Diabetes mellitus type 2 obese - stable. SVT - resolved. RIO on CPAP - stable. - HPI History of Present Illness: H&P per Dr. Marrero: This is a 81 y/o male with a history of sleep apnea, but does not use his CPAP, CAD, Diabetes mellitus and prior CVA, who had exposure to a daughter with COVID. She is currently in the hospital due to COVID, starting 4 days ago. The patient is vaccinated with 2 doses of covid vaccine. On 05/11/21, the patient tested (+) for COVID. He developed a cough 3 days ago and today had a fever. Today he felt weak and dizzy, and tried to get OOB but fell or rolled OOB, becoming trapped between the dresser and his bed and 911 was called by his grand daughter. The EMS run sheet documented a BP of 143/73 at the scene, HR 80, RR 32, O2 sat 92% on R.A. glu 210, and he was warm and diaphoretic. He was brought to the ER where his temp was 100.9F. His labs showed WBC 7.3, Hgb 10 (usually Hgb 12), JONNY with creat 1.6 (normally creat is 1.1) and interrogation of IVC showed dehydration, so he received 1L of saline. His resp PCR was neg for COVID today and his CXR was read as having CHF vs "artifact from overlying soft tissue" (since he ius obese), but it was not read as having lobar consolidation or an atypical, viral pneumonia. The patient is being placed in Observation status to manage his fever, dizziness,weakness and JONNY, which are likely from dehydration. When asked about his wishes regarding resuscitation, the patient said he has never thought about it, therefore, by default, he is a full code. - HOSPITAL COURSE Hospital Course: He was admitted initially for fever which was thought to be secondary to COVID- 19 infection. It was then noted that he was septic and it was later felt that this was secondary to urinary tract infection. His blood cultures grew E. coli as well as his urine culture. He was started on ciprofloxacin IV empirically. CT showed no evidence of urinary obstruction. He was treated with IV fluids in addition to the antibiotics. He did have acute kidney injury and his home valsartan/hydrochlorothiazide was held. His acute kidney injury was thought to be secondary to hypovolemia as well as possibly ATN due to borderline hypot ension during his hospitalization. He had resolution of his fever and improvement in his weakness with antibiotics. His renal function also improved and his creatinine was close to baseline on day of discharge. He was transitioned to oral antibiotics and was discharged on oral ciprofloxacin to nv mplete 2 weeks of therapy with the last day being June 08. During this hospitalization, it was also noted that his troponins were elevated and peaked at 220. An echocardiogram was obtained which showed no wall motion abnormalities and a preserved ejection fraction. This was felt to be demand ischemia due to the sepsis. It was recommended that he follow-up with his primary care physician on outpatient basis and to continue aspirin, atenolol, Lipitor. He also had brief episodes of SVT during this hospitalization which was likely due to the sepsis. These resolved after resumption of his atenolol. - ALLERGIES Allergies/Adverse Reactions: Allergies Allergy/AdvReac Type Severity Reaction Status Date / Time codeine Allergy Hallucinati Verified 11/04/20 11:29 ons - MEDICATIONS Home Medications: Ambulatory Orders Medication Instructions Recorded Confirmed Atenolol [Tenormin] 50 mg PO DAILY 05/25/21 05/25/21 Atorvastatin Calcium [Lipitor] 80 mg PO QPM 05/25/21 05/25/21 Cyanocobalamin [Vitamin B-12] 1,000 mcg IM Q30D 05/25/21 05/25/21 Finasteride [Proscar] 5 mg PO DAILY 05/25/21 05/25/21 Gabapentin [Neurontin] 300 mg PO BID 05/25/21 05/25/21 Pantoprazole Sodium 40 mg PO BIDAC 05/25/21 05/25/21 Tamsulosin [Flomax] 0.8 mg PO DAILY 05/25/21 05/25/21 Venlafaxine ER [Effexor ER] 37.5 mg PO DAILY 05/25/21 05/25/21 allopurinoL [Allopurinol] 300 mg PO DAILY 05/25/21 05/25/21 metFORMIN [Glucophage] 500 mg PO BIDWM 05/25/21 05/25/21 Aspirin EC [Ecotrin] 81 mg PO DAILY tablet 05/29/21 Benzonatate [Tessalon] 100 mg PO TID PRN #14 cap 05/29/21 Ciprofloxacin [Cipro] 500 mg PO BID 10 Days #42 tablet 05/29/21 Saccharomyces Boulardii [Florastor] 250 mg PO BIDWM 10 Days #20 cap 05/29/21 Valsartan 160 mg PO DAILY #30 tablet 05/29/21 - PHYSICAL EXAM AT DISCHARGE General Appearance: positive: No acute distress, Alert Eyes Bilateral: positive: Normal inspection, Conjunctivae nml ENT: positive: ENT inspection nml Neck: positive: Nml inspection Respiratory: positive: No respiratory distress. negative: Wheezes, Rales Cardiovascular: positive: Regular rate & rhythm. negative: Tachycardia, Systolic murmur Abdomen: positive: Non-tender, No distention. negative: Tenderness Skin: positive: Warm, Dry Extremities: positive: No pedal edema Neurologic/Psychiatric: positive: Motor nml. negative: Disoriented to place Physical Exam Other/Comments: Vital Signs - 24 hr 05/28/21 05/28/21 05/29/21 20:23 23:36 04:05 Temperature 36.2 C L 36.4 C L 36.3 C L Heart Rate [ 68 Brachial] Heart Rate [ 68 68 Monitoring electrodes] Respiratory 20 18 22 Rate Blood Pressure 150/69 H [Left Brachial artery] Blood Pressure 142/77 H 155/77 H [Right Brachial artery] O2 Saturation 99 98 96 05/29/21 05/29/21 08:12 10:52 Temperature 36.6 C 36.4 C L Heart Rate [ 93 67 Brachial] Heart Rate [ Monitoring electrodes] Respiratory 21 20 Rate Blood Pressure [Left Brachial artery] Blood Pressure 134/65 H 137/91 H [Right Brachial artery] O2 Saturation 93 97 Oxygen O2 Source Room air - LABS Result Diagrams: 05/29/21 05:35 05/29/21 05:35 - SEPSIS Current Stage of Sepsis: Resolved Possible source of Sepsis: Genitourinary Sepsis Criteria: Recorded Temperature greater than 38.3C or Less than 36C, Recorded Heart Rate greater than 90 bpm, Metabolic: lactate > 2 mmol/L - FOLLOW UP Follow Up: The patient was asked to discontinue his valsartan and hydrochlorothiazide and to begin taking a lower dose of valsartan. He was asked to follow-up with his primary care physician within 1 week and to have labs obtained to ensure his renal function is stable. He was also asked to monitor his blood glucose closely and to follow-up with his primary care physician if they are persistently close to 200. - TIME SPENT Time Spent in Discharge (Minutes): 34
[2021-05-29] MEDS: SACCHAROMYCES BOULARDII 250 MG CAPSULE PO SCH (07:51)
[2021-05-29] MEDS: allopurinoL 100 MG TABLET PO SCH (08:40)
[2021-05-29] MEDS: CIPROFLOXACIN 250 MG TABLET PO SCH (08:40)
[2021-05-29] MEDS: TAMSULOSIN 0.4 MG CAPSULE PO SCH (08:40)
[2021-05-29] MEDS: atenoloL 25 MG TABLET PO SCH (08:41)
[2021-05-29] MEDS: FINASTERIDE 5 MG TABLET PO SCH (08:41)
[2021-05-29] MEDS: GABAPENTIN 300 MG CAPSULE PO SCH (08:41)
[2021-05-29] MEDS: ASPIRIN EC 81 MG TABLET PO SCH (08:41)
[2021-05-29] MEDS: INSULIN GLARGINE 300 UNIT/3 ML PEN SUBQ SCH (08:42)
[2021-05-29] MEDS: ENOXAPARIN 40 MG/0.4 ML SYRINGE SUBQ SCH (08:42)
[2021-05-29] MEDS: VENLAFAXINE ER 37.5 MG CAPSULE PO SCH (08:46)
[2021-05-29] MEDS ORDERED: LOSARTAN 50 MG TABLET PO SCH (09:00)
[2021-05-29 10:53] VITALS: BP 137/91
[2021-05-29] MEDS ORDERED: MULTIVITAMIN W/MINERALS TABLET PO SCH (12:00)
== END 2021-05-29 12:19 | disposition home or self-care (01) | DRG 871 ==
LOC: EDUNIT# → ED 18:50 → MS2 21:34 → OBSVTOIN 05-25 10:01
PROVIDERS: ADMIT Internal Medicine; ATTEND Internal Medicine
DX: A41.51 Sepsis due to Escherichia coli [E. coli] (principal); U07.1 COVID-19; J18.9 Pneumonia, unspecified organism; R65.21 Severe sepsis with septic shock; N39.0 Urinary tract infection, site not specified; N17.9 Acute kidney failure, unspecified; I47.1 Supraventricular tachycardia; E11.9 Type 2 diabetes mellitus without complications; E86.0 Dehydration; I25.10 Atherosclerotic heart disease of native coronary artery without angina pectoris; I25.2 Old myocardial infarction; I50.9 Heart failure, unspecified; M19.90 Unspecified osteoarthritis, unspecified site; K08.109 Complete loss of teeth, unspecified cause, unspecified class; G47.33 Obstructive sleep apnea (adult) (pediatric); E66.9 Obesity, unspecified; D64.9 Anemia, unspecified; D69.6 Thrombocytopenia, unspecified; R32 Unspecified urinary incontinence; R77.8 Other specified abnormalities of plasma proteins; Z68.36 Body mass index [BMI] 36.0-36.9, adult; Z79.82 Long term (current) use of aspirin; Z79.84 Long term (current) use of oral hypoglycemic drugs; Z79.899 Other long term (current) drug therapy; Z86.73 Personal history of transient ischemic attack (TIA), and cerebral infarction without residual deficits; Z88.5 Allergy status to narcotic agent; Z91.19 Patient's noncompliance with other medical treatment and regimen; Z95.5 Presence of coronary angioplasty implant and graft; Z96.659 Presence of unspecified artificial knee joint; Z97.2 Presence of dental prosthetic device (complete) (partial)
CPT/HCPCS: 36415; 71045; 74176; 80048; 80053; 81001; 82274; 82550; 83036; 83540; 83605; 83690; 83735; 83880; 84466; 84484; 85025; 85379; 86140; 87040; 87086; 87150; 87181; 87205; 87493; 87631; 93005; 93306; 96372; 99283; 99285; A9270; J1650; J1815; J3370; 0202U; 81003; 87070